=== PATIENT | female | born 1960 | race Caucasian/White ===

== ENCOUNTER → 2016-08-01 | Outpatient (CLI) | payer BC ==
--- NOTE | 2016-08-01 15:48 | DIAGNOSTIC IMAGING REPORT ---
CHEST 2 VIEWS ROUTINE CLINICAL HISTORY: R06.02 Shortness of breath dyspnea COMPARISON STUDY: No previous studies for comparison. FINDINGS: The bones soft tissues and hemidiaphragms are normal. The cardiomediastinal silhouette is normal. The lungs are clear. The pulmonary vasculature is normal. IMPRESSION: Negative chest. Electronically signed by: Manuelito Hough M.D. 08/01/2016 3:47 PM Dictated Date/Time: 08/01/2016 3:47 PM
== END | disposition home or self-care (01) ==
LOC: C.RAD1850 15:37
PROVIDERS: ATTEND Nurse Practitioner Adult Health
DX: R06.02 Shortness of breath (principal)

== ENCOUNTER → 2016-12-04 | Outpatient (CLI) | payer BC ==
--- NOTE | 2016-12-04 09:19 | DIAGNOSTIC IMAGING REPORT ---
LEFT HIP UNILATERAL 2 VIEWS CLINICAL HISTORY: M25.552 Left hip [id number] COMPARISON: None. DISCUSSION: No fractures or dislocations are visualized. A subtle intertrochanteric lucency, is unlikely to represent a fracture given the absence of a traumatic history. There are no erosive or destructive changes. The joint space appears well-preserved for age. IMPRESSION: Unremarkable conventional radiographic evaluation of the left hip for age Electronically signed by: Ilya Poe M.D. 12/04/2016 9:17 AM Dictated Date/Time: 12/04/2016 9:15 AM
== END | disposition home or self-care (01) ==
LOC: C.RAD1850 09:03
PROVIDERS: ATTEND Nurse Practitioner Family
DX: M25.552 Pain in left hip (principal)

== ENCOUNTER 2020-10-17 07:18 | Inpatient (IN) ==
[2020-10-17] MEDS ORDERED: KETOROLAC TROMETHAMINE 15 MG/ML VIAL IV STA (07:51)
--- NOTE | 2020-10-17 08:01 | Emergency Department Note ---
History of Present Illness General Chief complaint: Leg Injury/Pain Stated complaint: LEFT LEG PAIN Time Seen by Provider: 10/17/20 07:38 Source: patient Mode of arrival: ambulatory Limitations: no limitations History of Present Illness Maximum Pain Intensity: 9 This patient is a 60-year-old female who presents to the emergency department for evaluation of left leg pain. She states she has pain for her left foot up to her hip. Her pain started 2 days ago and was initially intermittent. She had been doing some yard work and thinks this may have contributed to the pain. She states that beginning last evening, about 15 hours prior to arrival, her pain became constant. She states that her foot feels numb. She has had difficulty moving the left leg and states she has been unable to get down her stairs due to the pain and weakness. She tried an icy hot patch and Aspercreme last night, but was unable to take any medications because she was unable to go get them. She does have some pain in her left buttock, but no back pain. She reports this is happened in her right leg before, and she was told that it was a pinched nerve. She describes a feeling of "pop rocks" in her leg. Patient denies any urinary symptoms, incontinence, fevers or recent illness. She rates her discomfort a 9/10. Pain feels better when she is laying back flat. It is worse when she tries to move. Home Medications Medication Instructions Recorded Confirmed Type hydroxychloroquine 200 mg tablet 200 mg PO BID 02/09/19 10/17/20 History (Plaquenil) omeprazole 20 mg capsule,delayed 20 mg PO QAM PRN 02/09/19 10/17/20 History release CPAP Supplies 1 ea .ROUTE DAILY #1 ea 08/31/20 09/06/20 Rx montelukast 10 mg tablet 10 mg PO QAM 10/17/20 10/17/20 History (Singulair) multivitamin (Daily-Andrea) 1 tab PO QAM 10/17/20 10/17/20 History naproxen 500 mg tablet (Naprosyn) 500 mg PO BID 10/17/20 10/17/20 History Allergies Allergy/AdvReac Type Severity Reaction Status Date / Time animal dander Allergy Intermediate itchy Unverified 10/17/20 08:32 watery eyes, sneezing grass pollen Allergy Intermediate itchy Unverified 10/17/20 08:32 watery eyes, sneezing methylchloroisothiazolinone Allergy Intermediate itchy Unverified 10/17/20 08:35 watery eyes, sneezing mite-Dermatophagoides Allergy Intermediate itchy Unverified 10/17/20 08:32 farinae, thea watery eyes, sneezing mold Allergy Intermediate itchy Unverified 10/17/20 08:32 watery eyes, sneezing tree and shrub pollen Allergy Intermediate itchy Unverified 10/17/20 08:32 watery eyes, sneezing fluticasone [From Flonase] Allergy itching Verified 10/17/20 08:27 Latex, Natural Rubber AdvReac Unknown Rash Verified 10/17/20 08:27 Thimerosal AdvReac Unknown allergy Uncoded 10/17/20 08:27 tested this came up Past Med/Surg History Medical History (Updated 10/17/20 @ 16:16 by SARA Garcia) SNHL (sensorineural hearing loss) Tinnitus Surgical History Papilloma of breast Benign intraductal papilloma L breast S/P cholecystectomy S/P nasal surgery S/P tonsillectomy and adenoidectomy Family History Mother Breast cancer Sister Breast cancer Grandmother Colon cancer Denies family history of Ovarian cancer Prostate cancer Myocardial infarction Social History Smoking Status: Never smoker Second Hand Exposure: No; Hx Alcohol Use: No Hx Substance Use: No Preferred Language: [place] Visual Impairment: No Limitations Hearing Ability: Normal marital status: Single Current Living Situation: Alone current occupational status: employed 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 Feels Safe at Home: Yes Childhood Exposure to Second-Hand Smoke: Yes Dental Care, Regularly: Yes Physical Activity Frequency: 5-6 Times per Week Seatbelt Use: always Sunscreen Use: Yes Review of Systems A total of 10 systems reviewed and were otherwise negative Physical Exam Vital Signs Vital Signs - 24 hr 10/17/20 07:33 10/17/20 09:18 10/17/20 11:00 Temperature 36.8 C Temperature Source Temporal Artery Scan Pulse Rate 87 Pulse Rate [Apical] 88 70 Respiratory Rate 20 18 18 Blood Pressure 154/76 H Blood Pressure [Left Arm] 137/57 L 147/67 H Blood Pressure Mean 102 Blood Pressure Mean [Left Arm] 83 93 Blood Pressure Position Sitting Pulse Oximetry 96 98 96 Oxygen Delivery Method Room Air Room Air Room Air Sepsis Recent Fever Within 48 Hours No Sepsis New/Unexplained Change in Mental Status No Sepsis Action Taken by Nursing No Action Required 10/17/20 13:00 Temperature Temperature Source Pulse Rate Pulse Rate [Apical] 80 Respiratory Rate 18 Blood Pressure Blood Pressure [Left Arm] 138/90 Blood Pressure Mean Blood Pressure Mean [Left Arm] 106 Blood Pressure Position Pulse Oximetry 98 Oxygen Delivery Method Room Air Sepsis Recent Fever Within 48 Hours Sepsis New/Unexplained Change in Mental Status Sepsis Action Taken by Nursing VITALS: Vitals are noted on the nurse's note and reviewed by myself. GENERAL: This is a 60-year-old female, in no acute distress, well-developed well-nourished. SKIN: The skin was without rashes. EYES: Pupils equal round and reactive to light and accommodation. MOUTH: Mucous membranes moist. Tonsils are not enlarged. Pharynx without erythema or exudate. NECK: Supple without nuchal rigidity. No lymphadenopathy. HEART: Regular rate and rhythm without murmurs gallops or rubs. LUNGS: Clear to auscultation bilaterally without wheezes, rales or rhonchi. ABDOMEN: Positive bowel sounds x 4. Soft, nontender to palpation. MUSCULOSKELETAL: There is no obvious deformity. There is no tenderness to palpation of the left leg. Patient does report some left-sided SI joint tenderness. Full range of motion of bilateral lower extremities. Strength 5/5 in the right lower extremity, 4/5 in the left lower extremity at the hip and ankle. Distal sensation intact. Course Administered Medications Discontinued Medications Dexamethasone Sodium Phosphate (DexamethasonePf 10 Mg/Ml Vial) 10 mg IV NOW ONE Stop: 10/17/20 11:41 Last Admin: 10/17/20 12:19 Dose: 10 mg Documented by: [id number] Hydromorphone HCl (Hydromorphone Inj 1 Mg/Ml Syringe) 1 mg IV NOW STA Stop: 10/17/20 11:00 Last Admin: 10/17/20 11:05 Dose: 1 mg Documented by: [id number] Ketorolac Tromethamine (Ketorolac Tromethamine 15 Mg/Ml Vial) 15 mg IV NOW STA Stop: 10/17/20 07:52 Last Admin: 10/17/20 08:15 Dose: 15 mg Documented by: [id number] Ondansetron HCl (Ondansetron 4 Mg Od Tab) 4 mg PO NOW STA Stop: 10/17/20 16:01 Last Admin: 10/17/20 16:08 Dose: Not Given Documented by: [id number] Ondansetron HCl (Ondansetron 4 Mg Od Tab) Confirm Administered Dose 4 mg .ROUTE .STK-MED ONE Stop: 10/17/20 16:05 Last Admin: 10/17/20 16:05 Dose: 4 mg Documented by: [id number] Medical Decision Making Differential Diagnosis Differential diagnosis includes cauda equina syndrome, cord compression, disc herniation, muscle spasm, lumbar strain, epidural abscess, malignancy, transverse myelitis, urinary tract infection, colitis, diverticulitis, kidney stone, among others. Home Medications Current Medication List: was personally reviewed by me Laboratory Data Attestation: I reviewed the patient's lab results. Result diagrams: 10/17/20 08:00 10/17/20 08:00 Lab Results 10/17/20 10/17/20 10/17/20 Range/Units 08:00 08:00 15:44 WBC 6.56 (4.8-10.8) K/uL RBC 4.70 (4.2-5.4) M/uL Hgb 14.0 (12.0-16.0) g/dL Hct 42.5 (37-47) % MCV 90.4 (80-100) fL MCH 29.8 (25-34) pg MCHC 32.9 (32-36) g/dL RDW Std Deviation 44.2 (36.4-46.3) fL RDW Coeff of Deborah 13.3 (11.5-14.5) % Plt Count 287 (130-400) K/uL MPV 9.7 (7.4-10.4) fL Immature Gran % (Auto) 0.2 % Neut % (Auto) 67.2 % Lymph % (Auto) 22.6 % Gladwin % (Auto) 8.2 % Eos % (Auto) 1.5 % Baso % (Auto) 0.3 % Neut # (Auto) 4.41 (1.4-6.5) K/uL Lymph # (Auto) 1.48 (1.2-3.4) K/uL Gladwin # (Auto) 0.54 (0.11-0.59) K/uL Eos # (Auto) 0.10 (0-0.5) K/uL Baso # (Auto) 0.02 (0-0.2) K/uL Immature Gran # (Auto) 0.01 (0.00-0.02) K/uL Sodium 140 (136-145) mmol/L Potassium 3.9 (3.5-5.1) mmol/L Chloride 108 H (98-107) mmol/L Carbon Dioxide 27 (21-32) mmol/L Anion Gap 6.0 (3-11) BUN 14 (7-18) mg/dl Creatinine 0.90 (0.6-1.2) mg/dl Est Cr Clr Drug Dosing 89.5 ml/min Est GFR ( Amer) 81.1 ml/min Est GFR (Non-Af Amer) 70.0 ml/min BUN/Creatinine Ratio 15.5 (10-20) Glucose 142 H (70-99) mg/dl Calcium 8.9 (8.5-10.1) mg/dl Total Bilirubin 0.6 (0.2-1) mg/dl AST 21 (15-37) U/L ALT 53 (12-78) U/L Alkaline Phosphatase 67 (45-117) U/L Total Protein 7.1 (6.4-8.2) gm/dl Albumin 3.7 (3.4-5.0) gm/dl Globulin 3.4 (2.5-4.0) gm/dl Albumin/Globulin Ratio 1.1 (0.9-2) COVID-19 Eval Order Covid19 at [facility] Imaging Data Attestation: I personally reviewed and interpreted this imaging study as follows: Radiologist's Impression: Lumbar Spine MRI 10/17/20 07:51 MR lumbar spine wo con CLINICAL HISTORY: 60 years-old Female with left leg pain/weakness/numbness. Acute low back pain with radiation into the left lower leg COMPARISON: None. TECHNIQUE: Multiplanar, multi sequence MRI of the lumbar spine was performed without intravenous contrast. FINDINGS: Pipe Racker localizer images demonstrate no gross extraspinal abnormality. Subcutaneous edema of the lower back is likely physiologic. No acute fracture, subluxation, endplate erosion or significant bone marrow edema. Conus medullaris terminates at T12-L1. Signal within the imaged thoracic spinal cord and cauda equina is within normal limits. 1.4 cm L3 vertebral body hemangioma. Type II endplate degenerative changes at L4-L5. T12-L1: Mild facet arthrosis with ligamentum flavum thickening. No central canal or neural foraminal stenosis. L1-L2: Mild facet arthrosis with ligamentum flavum thickening. No central canal or neural foraminal stenosis. L2-L3: And mild to moderate facet arthrosis with ligamentum flavum thickening. Small posterior annular disc bulge flattens the ventral thecal sac. Mild spondylitic spurring. There is mild right neural foraminal stenosis. Mild central canal stenosis. The left neuroforamen is patent. L3-L4: Small posterior annular disc bulge favoring the left lateral recess and left neural foramen with mild spondylitic spurring. Ligamentum flavum thickening with moderate facet arthrosis. AP dimension of the thecal sac measures 7 mm. There is mild to moderate central canal stenosis with at least moderate narrowing of the left lateral recess. There is mild to moderate bilateral neural foraminal narrowing. L4-L5: Mild intervertebral disc space narrowing with spondylitic spurring, posterior annular disc bulge with disc osteophyte complex. Ligamentum flavum thickening with moderate facet arthrosis. AP dimension of the thecal sac measures 6 mm. There is moderate to severe central canal stenosis with severe narrowing of the lateral recesses. Moderate to severe right with moderate left neural foraminal narrowing. L5-S1: Mild spondylitic spurring with circumferential annular disc bulge and posterior annular fissure. Spondylitic spurring with ligamentum flavum thickening and at least moderate facet arthrosis. There is a left lateral recess disc extrusion measuring 0.7 x 1.3 cm extending 9 mm inferior to the superior endplate of S1. This abuts and posteriorly displaces the left S1 nerve root. There is severe narrowing of the left lateral recess. No significant central canal narrowing. Severe right with moderate left neural foraminal stenosis. IMPRESSION: 1. At L5-S1 there is a left lateral recess disc extrusion which abuts and posteriorly displaces the left S1 nerve root resulting in severe left lateral recess narrowing with severe right and moderate left neural foraminal stenosis. 2. Moderate to severe central canal stenosis at L4-L5. 3. Additional discogenic degenerative changes with facet arthrosis as detailed above. ACT 112: Negative or not required by law. The above report was generated using voice recognition software. It may contain grammatical, syntax or spelling errors. Electronically signed by: Jaquan Amor M.D. 10/17/2020 10:36 AM MDM Narrative Continuous library monitor: Order was placed for continuous library monitor. Patient was placed on the library monitor. Patient was noted to be in normal sinus rhythm at an initial rate of 87 bpm. The patient is a 60-year-old female who presents today complaining of back pain, left leg numbness and weakness. An MRI was performed and did show a large disc protrusion at L5-S1 with secondary findings which would certainly contribute to the patient's symptoms. I spoke with the on-call spine surgeon, Dr. Fernandez, who did evaluate the patient in the emergency department. He had recommended IV Decadron and patient has been given this. She also received Toradol and Dilaudid for pain. She did not feel like she would be able to go home given the severity of her symptoms and Dr. Fernandez recommended medical admission with pain management consult. I did speak with the [facility] hospitalist service, who agreed to evaluate the patient for further care. Impression & Plan Acute left lumbar radiculopathy Discharge Plan Visit Data Chief Complaint: Leg Injury/Pain Stated Complaint: LEFT LEG PAIN ED Provider: Emeterio Jimenez ED Midlevel Provider: Cathy Haney Discharge Problem: Acute left lumbar radiculopathy Forms Stand Alone Forms: [facility] Prescriptions Prescriptions: No Action hydroxychloroquine [Plaquenil] 200 mg tablet 200 mg PO BID RF: 0 omeprazole 20 mg capsule,delayed release(DR/EC) 20 mg PO QAM PRN (Reason: Acid Reflux) RF: 0 CPAP Supplies Misc 1 ea .Route DAILY Qty: 1 RF: 0 multivitamin [Daily-Andrea] Tablet 1 tab PO QAM RF: 0 montelukast [Singulair] 10 mg tablet 10 mg PO QAM RF: 0 naproxen [Naprosyn] 500 mg tablet 500 mg PO BID RF: 0 Referrals Referrals: Ingrid Michaels MD [Primary Care Provider] -
[2020-10-17 08:14] LABS: Basophils # (auto) 0.02 K/uL (0-0.2); Basophils % (auto) 0.3 %; Eosinophils % (auto) 1.5 %; Hematocrit (blood only) 42.5 % (37-47); Immature Granulocytes # (auto) 0.01 K/uL (0.00-0.02); Immature Granulocytes % (auto) 0.2 %; Lymphocytes # (auto) 1.48 K/uL (1.2-3.4); Lymphocytes % (auto) 22.6 %; Mean Corpuscular Hemoglobin 29.8 pg (25-34); Mean Corpuscular Hgb Conc 32.9 g/dL (32-36); Mean Corpuscular Volume 90.4 fL (80-100); Mean Platelet Volume 9.7 fL (7.4-10.4); Monocytes # (auto) 0.54 K/uL (0.11-0.59); Monocytes % (auto) 8.2 %; Neutrophils # (auto) 4.41 K/uL (1.4-6.5); Neutrophils % (auto) 67.2 %; Platelet Count 287 K/uL (130-400); RDW Coefficient of Variation 13.3 % (11.5-14.5); RDW Standard Deviation 44.2 fL (36.4-46.3); White Blood Count 6.56 K/uL (4.8-10.8)
[2020-10-17 08:28] LABS: Albumin Level 3.7 gm/dl (3.4-5.0); BUN Creatinine Ratio 15.5 (10-20); Calcium 8.9 mg/dl (8.5-10.1); Creatinine Clr Calc Pharmacy 89.5 ml/min; Est GFR (African American) 81.1 ml/min; Potassium 3.9 mmol/L (3.5-5.1)
[2020-10-17 08:31] LABS: Albumin Globulin Ratio 1.1 (0.9-2); Bilirubin,Total 0.6 mg/dl (0.2-1); Globulin 3.4 gm/dl (2.5-4.0); Total Protein 7.1 gm/dl (6.4-8.2)
--- NOTE | 2020-10-17 10:37 | Magnetic Resonance Report ---
MR lumbar spine wo con CLINICAL HISTORY: 60 years-old Female with left leg pain/weakness/numbness. Acute low back pain with radiation into the left lower leg COMPARISON: None. TECHNIQUE: Multiplanar, multi sequence MRI of the lumbar spine was performed without intravenous cont rast. FINDINGS: Rpg Developer localizer images demonstrate no gross extraspinal abnormality. Subcutaneous edema of the lower back is likely physiologic. No acute fracture, subluxation, endplate erosion or significant bone thomas ow edema. Conus medullaris terminates at T12-L1. Signal within the imaged thoracic spinal cord and ca uda equina is within normal limits. 1.4 cm L3 vertebral body hemangioma. Type II endplate degenerativ e changes at L4-L5. T12-L1: Mild facet arthrosis with ligamentum flavum thickening. No central canal or neural foraminal stenosis. L1-L2: Mild facet arthrosis with ligamentum flavum thickening. No central canal or neural foraminal stenosis. L2-L3: And mild to moderate facet arthrosis with ligamentum flavum thickening. Small posterior annul ar disc bulge flattens the ventral thecal sac. Mild spondylitic spurring. There is mild right neural foraminal stenosis. Mild central canal stenosis. The left neuroforamen is patent. L3-L4: Small posterior annular disc bulge favoring the left lateral recess and left neural foramen w ith mild spondylitic spurring. Ligamentum flavum thickening with moderate facet arthrosis. AP dimensi on of the thecal sac measures 7 mm. There is mild to moderate central canal stenosis with at least mo derate narrowing of the left lateral recess. There is mild to moderate bilateral neural foraminal miladis rowing. L4-L5: Mild intervertebral disc space narrowing with spondylitic spurring, posterior annular disc bu lge with disc osteophyte complex. Ligamentum flavum thickening with moderate facet arthrosis. AP dime nsion of the thecal sac measures 6 mm. There is moderate to severe central canal stenosis with severe narrowing of the lateral recesses. Moderate to severe right with moderate left neural foraminal narr owing. L5-S1: Mild spondylitic spurring with circumferential annular disc bulge and posterior annular fissu re. Spondylitic spurring with ligamentum flavum thickening and at least moderate facet arthrosis. The re is a left lateral recess disc extrusion measuring 0.7 x 1.3 cm extending 9 mm inferior to the supe rior endplate of S1. This abuts and posteriorly displaces the left S1 nerve root. There is severe miladis rowing of the left lateral recess. No significant central canal narrowing. Severe right with moderate left neural foraminal stenosis. IMPRESSION: 1. At L5-S1 there is a left lateral recess disc extrusion which abuts and posteriorly displaces the l eft S1 nerve root resulting in severe left lateral recess narrowing with severe right and moderate le ft neural foraminal stenosis. 2. Moderate to severe central canal stenosis at L4-L5. 3. Additional discogenic degenerative changes with facet arthrosis as detailed above. ACT 112: Negative or not required by law. The above report was generated using voice recognition software. It may contain grammatical, syntax o r spelling errors. Electronically signed by: Jaquan Amor M.D. 10/17/2020 10:36 AM
[2020-10-17] MEDS ORDERED: HYDROmorphone INJ 1 MG/ML SYRINGE IV STA (10:59)
[2020-10-17] MEDS ORDERED: dexAMETHasone**PF** 10 MG/ML VIAL IV ONE (11:40)
[2020-10-17] MEDS ORDERED: ONDANSETRON 4 MG OD TAB PO STA (16:00)
--- NOTE | 2020-10-17 16:01 | History & Physical Report ---
Date of Service October 17, 2020 Assessment & Plan (1) Acute pain: Plan: Acute left sided sacroiliac pain with sciatic involvement - MRI as above - Prednisone 50mg PO daily - Continue hydromorphone 0.5 mg IV for severe pain - Continue Naprosyn - PPI while on Naprosyn and Prednisone - Lidoderm patch - heat therapy - PT/OT - Consider acute pain consult in the morning (2) Sciatic leg pain: Plan: As above- At L5-S1 there is a left lateral recess disc extrusion which abuts and posteriorly displaces the left S1 nerve root resulting in severe left lateral recess narrowing with severe right and moderate left neural foraminal stenosis. Moderate to severe central canal stenosis at L4-L5. Additional discogenic degenerative changes with facet arthrosis as detailed above. Pt/OT (3) Spinal stenosis: Plan: As above (4) Lupus (systemic lupus erythematosus): Plan: Continue Plaquenil 200 PO BID (5) Hypercholesterolemia: Plan: Not on home therapy (6) Acid reflux: Plan: Continue PPI as above (7) Obstructive sleep apnea: Plan: AHI in 2019 12.5- AutoPAP 4-17 - Patient home machine has been recalled [facility]- she has not used for 3 weeks - In house machine will be ordered, creviewed with patient would like her to wear at night especially with addition of sedatives/narcotics History of Present Illness Primary Care Provider: Ingrid Michaels MD 60 YOF with past medical history of: Lupus, HLD, CHINO, DMII, Obesity. Patient comes to the emergency room today via friend's vehicle on crutches. Her chief complaint is left back and leg pain. The pain started on Friday following her working in her yard. She states the pain is sharp and constant and travels from her left hip down the lateral surface of her leg into her ankle. She was treated in the EMD with Dilaudid, Toradol, and Decadron. She doesn't feel that any of this helped, but was sleeping upon entering the room. The patient states that her pain is controllable when she is lying down as this "makes her not care about having the pain, but doesn't go away." The pain is worse when she is standing or sitting and had crutches left over at home so started using these to help her walk. She is on Naprosyn at home and did not feel this provided any relief. She had a MRI of her lumbar spine done in the [facility], that showed L5-S1 left lateral recess disc extrusion that abuts and displaces the left S1 nerve root posteriorly and severe right and moderate left neural foraminal stenosis and moderate to severe central canal stenosis at l4-l5 with other degenerative changes. [facility] had ortho-spine come evaluate the patient at the bedside reportedly not surgical in nature. Patient unable to get up and move around well enough for discharge secondary to pain. Patient will be observed in house for continuing oral steroids, pain control, physical therapy evaluation. Allergies Allergy/AdvReac Type Severity Reaction Status Date / Time animal dander Allergy Intermediate itchy Unverified 10/17/20 08:32 watery eyes, sneezing grass pollen Allergy Intermediate itchy Unverified 10/17/20 08:32 watery eyes, sneezing methylchloroisothiazolinone Allergy Intermediate itchy Unverified 10/17/20 08:35 watery eyes, sneezing mite-Dermatophagoides Allergy Intermediate itchy Unverified 10/17/20 08:32 farinae, thea watery eyes, sneezing mold Allergy Intermediate itchy Unverified 10/17/20 08:32 watery eyes, sneezing tree and shrub pollen Allergy Intermediate itchy Unverified 10/17/20 08:32 watery eyes, sneezing fluticasone [From Flonase] Allergy itching Verified 10/17/20 08:27 Latex, Natural Rubber AdvReac Unknown Rash Verified 10/17/20 08:27 Thimerosal AdvReac Unknown allergy Uncoded 10/17/20 08:27 tested this came up Home Medications Medication Instructions Recorded Confirmed Type hydroxychloroquine 200 mg tablet 200 mg PO BID 02/09/19 10/17/20 History (Plaquenil) omeprazole 20 mg capsule,delayed 20 mg PO QAM PRN 02/09/19 10/17/20 History release CPAP Supplies 1 ea .ROUTE DAILY #1 ea 08/31/20 09/06/20 Rx montelukast 10 mg tablet 10 mg PO QAM 10/17/20 10/17/20 History (Singulair) multivitamin (Daily-Andrea) 1 tab PO QAM 10/17/20 10/17/20 History naproxen 500 mg tablet (Naprosyn) 500 mg PO BID 10/17/20 10/17/20 History Past Med/Surg History Medical History SNHL (sensorineural hearing loss) Tinnitus Surgical History Papilloma of breast Benign intraductal papilloma L breast S/P cholecystectomy S/P nasal surgery S/P tonsillectomy and adenoidectomy Family History Mother Breast cancer Sister Breast cancer Grandmother Colon cancer Denies family history of Ovarian cancer Prostate cancer Myocardial infarction Social History Smoking Status: Never smoker Second Hand Exposure: No; Do You Dip or Chew Tobacco: No; Tobacco Cessation Education Requested by Patient: No Hx Alcohol Use: No Hx Substance Use: No Preferred Language: Indian Visual Impairment: No Limitations Hearing Ability: Normal Brancher Required: No Beliefs That Will Affect Care: None marital status: Single Current Living Situation: Alone current occupational status: employed 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 Other Information That Helps Us Care for You: No Feels Safe at Home: Yes Safety Concerns: Feels Safe At This Time Childhood Exposure to Second-Hand Smoke: Yes Dental Care, Regularly: Yes Physical Activity Frequency: 5-6 Times per Week Seatbelt Use: always Sunscreen Use: Yes Assistive Devices: Crutches and Glasses Review of Systems Review of Systems: REVIEW OF SYSTEMS: Constitutional: No fever, sweats or chills Eyes: No diplopia, no worsening or blurred vision ENT: normal hearing, no trouble swallowing Respiratory: No cough, sputum, dyspnea at rest or on exertion Cardiovascular: No chest pain, tightness or palpitations Abdomen: No pain, nausea, vomiting, diarrhea or constipation Musculoskeletal: (+) per HPI, No calf pain or swelling, Neurologic: No weakness, numbness/tingling, or balance problems Psychiatric: No anxiety or depression Skin: No rash or itch Physical Exam Physical Exam: PHYSICAL EXAM: General: awaken when entering the room, alert, no apparent distress Head: Normocephalic, atraumatic ENT: PERRL, EOMI, no pharyngeal exudate, mucous membranes moist Neuro: AAO x 3, speech clear and appropriate, strength intact bilaterally 5/5, sensation intact and equal all extremities and dermatomes, Chest: equal rise and fall of the chest, no accessory muscle use, no heaves or thrills, Clear to auscultation, on room air, Cardiac: Regular rate and rhythm, telemetry reviewed-NSR, skin warm dry, cap refill <3 seconds, peripheral pulses +2 no JVD, no murmur, no edema GI: NABS x 4 quadrants, soft, nontender to palpation, no rebound, guarding or tenderness : Spontaneously voiding, no pain, no CVA tenderness, Extremities/MSK: Spine normal alignment no step-offs or tenderness with palpation. Pain with palpation of left SI joint and left posterior trochar, muscles are soft and not tensed, patient is able to flex quads. no errythema or Normal inspection, no peripheral edema or erythema, calfs nontender to palpation Psych: flat mood and affect Skin: no rash or erythema Results & Data Results & Data ([facility]) Vital Signs (Past 12 Hours) Vital Signs Temp Pulse Pulse Resp BP BP Pulse Ox 10/17/20 13:00 80 18 138/90 98 10/17/20 11:00 70 18 147/67 H 96 10/17/20 09:18 88 18 137/57 L 98 10/17/20 07:33 36.8 C 87 20 154/76 H 96 Laboratory Results Abnormal Labs 10/17/20 08:00 Chloride 108 H Glucose 142 H Diagnostic Findings Lumbar Spine MRI 10/17/20 07:51 MR lumbar spine wo con CLINICAL HISTORY: 60 years-old Female with left leg pain/weakness/numbness. Acute low back pain with radiation into the left lower leg COMPARISON: None. TECHNIQUE: Multiplanar, multi sequence MRI of the lumbar spine was performed without intravenous contrast. FINDINGS: Catheter Builder localizer images demonstrate no gross extraspinal abnormality. Subcutaneous edema of the lower back is likely physiologic. No acute fracture, subluxation, endplate erosion or significant bone marrow edema. Conus medullaris terminates at T12-L1. Signal within the imaged thoracic spinal cord and cauda equina is within normal limits. 1.4 cm L3 vertebral body hemangioma. Type II endplate degenerative changes at L4-L5. T12-L1: Mild facet arthrosis with ligamentum flavum thickening. No central canal or neural foraminal stenosis. L1-L2: Mild facet arthrosis with ligamentum flavum thickening. No central canal or neural foraminal stenosis. L2-L3: And mild to moderate facet arthrosis with ligamentum flavum thickening. Small posterior annular disc bulge flattens the ventral thecal sac. Mild spondylitic spurring. There is mild right neural foraminal stenosis. Mild central canal stenosis. The left neuroforamen is patent. L3-L4: Small posterior annular disc bulge favoring the left lateral recess and left neural foramen with mild spondylitic spurring. Ligamentum flavum thickening with moderate facet arthrosis. AP dimension of the thecal sac measures 7 mm. There is mild to moderate central canal stenosis with at least moderate narrowing of the left lateral recess. There is mild to moderate bilateral neural foraminal narrowing. L4-L5: Mild intervertebral disc space narrowing with spondylitic spurring, posterior annular disc bulge with disc osteophyte complex. Ligamentum flavum thickening with moderate facet arthrosis. AP dimension of the thecal sac measures 6 mm. There is moderate to severe central canal stenosis with severe narrowing of the lateral recesses. Moderate to severe right with moderate left neural foraminal narrowing. L5-S1: Mild spondylitic spurring with circumferential annular disc bulge and posterior annular fissure. Spondylitic spurring with ligamentum flavum thickening and at least moderate facet arthrosis. There is a left lateral recess disc extrusion measuring 0.7 x 1.3 cm extending 9 mm inferior to the superior endplate of S1. This abuts and posteriorly displaces the left S1 nerve root. There is severe narrowing of the left lateral recess. No significant central canal narrowing. Severe right with moderate left neural foraminal stenosis. IMPRESSION: 1. At L5-S1 there is a left lateral recess disc extrusion which abuts and posteriorly displaces the left S1 nerve root resulting in severe left lateral recess narrowing with severe right and moderate left neural foraminal stenosis. 2. Moderate to severe central canal stenosis at L4-L5. 3. Additional discogenic degenerative changes with facet arthrosis as detailed above. ACT 112: Negative or not required by law. The above report was generated using voice recognition software. It may contain grammatical, syntax or spelling errors. Electronically signed by: Jaquan Amor M.D. 10/17/2020 10:36 AM Medications Administered Home Medications hydroxychloroquine 200 mg tablet (Plaquenil) 200 mg PO BID 02/09/19 [History Confirmed 10/17/20] omeprazole 20 mg capsule,delayed release 20 mg PO QAM PRN 02/09/19 [History Confirmed 10/17/20] CPAP Supplies 1 ea .ROUTE DAILY #1 ea 08/31/20 [Rx Confirmed 09/06/20] montelukast 10 mg tablet (Singulair) 10 mg PO QAM 10/17/20 [History Confirmed 10/17/20] multivitamin (Daily-Andrea) 1 tab PO QAM 10/17/20 [History Confirmed 10/17/20] naproxen 500 mg tablet (Naprosyn) 500 mg PO BID 10/17/20 [History Confirmed 10/17/20] ECG Additional Comments: Pending on admission Code Status & VTE Plan Code Status CODE: FULL VTE: SCD's, Lovenox 40mg sq BID VTE Prophylaxis Plan VTE Prophylaxis will be ordered: Yes Supervising Physician Co-Signing Physician Notes I supervised Colby Galvin NP on this admission. I interviewed and examined the patient independently of him. The plan is as written in the CR[facility] SPECIALIST's note except for any following changes/exceptions: None 60yo F w/ hx lupus who presents intractable back pain. Pain was not amenable to ED treatments. She was seen by Dr. Fernandez who recommended steroids, Pain Management consult for possible injection if steroids and PT don't work, and outpatient follow-up. Will start with conservative measure and go from there. Monitor neurologic status. PG Care Time/CCT Total # of Minutes Spent Total Time Spent with Patient: Total time spent is greater than 50% in coordination of care (as documented) at patient's floor/unit and/or counseling patient: Coding Level of Care Code INT OBSERVATION CARE 70M LVL 3 Diagnoses Acute pain R52 Sciatic leg pain M54.30 Spinal stenosis M48.00 Lupus (systemic lupus erythematosus) M32.9 Hypercholesterolemia E78.00 Acid reflux K21.9 Obstructive sleep apnea G47.33
[2020-10-17] MEDS ORDERED: ONDANSETRON 4 MG OD TAB ONE (16:04)
[2020-10-17] MEDS ORDERED: ACETAMINOPHEN 325 MG TAB ONE (17:52)
[2020-10-17] MEDS: HYDROmorphone INJ 0.5 MG/0.5 ML SYR IV PRN ×2 (18:28→22:29)
--- NOTE | 2020-10-17 20:19 | Orthopedic Consultation ---
Date of Consultation October 17, 2020 History of Present Illness Reason for Consultation: Please see HPI Requesting Physician: Please see HPI History of Present Illness Chief Complaint: low back pain, left leg symptoms Patient is seen as consult from Cathy Haney PA-C, [facility] ED. Patient is seen in the ED with plans for admission. Thank you for the referral! Patient is here for initial evaluation of above. The pain has been present for 2 days and started after a period of gardening. The pain is focal to the left buttock with radiation to the left foot and sole of feet. The pain is worse with sitting and standing and improved with lying. There is associated numbness and tingling to the sole of left foot. There is subjective weakness affecting the entire leg with significant inhibitation with pain, mainly affecting dorsiflexion and plantarflexion of the left foot. Prior treatments have included IV steroids received in ER, but not PT, NSAIDs or injections. Patient denies new bowel incontinence, bladder retention or saddle anesthesia. Please refer to Ortho Intake section below for further details on history. Physical Exam: Appearance: Well kept, normally developed Psych: Alert, normal mood and affect Eyes: Anicteric Cardiovascular: No lower extremity edema, extremities warm Respiratory: Breathing unlabored Skin: no rashes Musculoskeletal: 5/5 motor strength right L2-S1 4/5 left L2 (pain inhibited) 4/5 left L3 (pain inhibited) 4/5 left L4 (pain inhibited) 4-/5 left L5 (pain inhibited) 4-/5 left L5 (pain inhibited) Straight leg raise positive Neurologic: Sensation 2/2 to light touch bilateral L2-S1 except left S1 1/2. Reflexes are 2+ patella and ankle bilaterally. Babinski neg. No clonus. Global sagittal and coronal balance are within normal limits. Skin on the lower back is healthy with no rashes, lesions or surgical scars. No excessive kyphosis or scoliosis. Lumbar spine range of motion is limited by pain and stiffness. Bilateral lower extremity range of motion is within normal limits with no increased pain. No obvious hip, knee, or ankle pathology bilaterally Bilateral lower extremities are well perfused with no signs of DVT. Spine Imaging: AP and lateral, oblique lumbar (supine) spine 10/17/20 x-rays independently reviewed/interpreted. Findings: no areas of severe DDD no evidence of instability or fracture reported as " FINDINGS: There is no fracture. No subluxation. Mild disc space narrowing at L4-L5 with small endplate osteophytes. Mild facet degenerative changes at L4-L5 and L5-S1. The sacrum is intact. Prior cholecystectomy. IMPRESSION: No fracture or subluxation within the lumbar spine. Mild degenerative changes within the lower lumbar spine as described above. " MRI lumbar spine 10/17/20 independently reviewed/interpreted. Findings: L5-S1 left lateral disc herniation with inferior migration, severe lateral recess stenosis, impingement of the left traversing nerve root, mild bilateral foraminal stenosis L4-5 moderate-severe central stenosis, moderate bilateral foraminal stenosis, with broad-based disc bulge, bilateral facet and ligamentum flavum hypertrophy reported as " FINDINGS: Orthotic Technician localizer images demonstrate no gross extraspinal abnormality. Subcutaneous edema of the lower back is likely physiologic. No acute fracture, s ubluxation, endplate erosion or significant bone marrow edema. Conus medullaris terminates at T12-L1. Signal within the imaged thoracic spinal cord and cauda equina is within normal limits. 1.4 cm L3 vertebral body hemangioma. Type II endplate degenerative changes at L4-L5. T12-L1: Mild facet arthrosis with ligamentum flavum thickening. No central canal or neural foraminal stenosis. L1-L2: Mild facet arthrosis with ligamentum flavum thickening. No central canal or neural foraminal stenosis. L2-L3: And mild to moderate facet arthrosis with ligamentum flavum thickening. Small posterior annular disc bulge flattens the ventral thecal sac. Mild spondylitic spurring. There is mild right neural foraminal stenosis. Mild central canal stenosis. The left neuroforamen is patent. L3-L4: Small posterior annular disc bulge favoring the left lateral recess and left neural foramen with mild spondylitic spurring. Ligamentum flavum thickening with moderate facet arthrosis. AP dimension of the thecal sac measures 7 mm. There is mild to moderate central canal stenosis with at least moderate narrowing of the left lateral recess. There is mild to moderate bilateral neural foraminal narrowing. L4-L5: Mild intervertebral disc space narrowing with spondylitic spurring, posterior annular disc bulge with disc osteophyte complex. Ligamentum flavum thickening with moderate facet arthrosis. AP dimension of the thecal sac measures 6 mm. There is moderate to severe central canal stenosis with severe narrowing of the lateral recesses. Moderate to severe right with moderate left neural foraminal narrowing. L5-S1: Mild spondylitic spurring with circumferential annular disc bulge and posterior annular fissure. Spondylitic spurring with ligamentum flavum thickening and at least moderate facet arthrosis. There is a left lateral recess disc extrusion measuring 0.7 x 1.3 cm extending 9 mm inferior to the superior endplate of S1. This abuts and posteriorly displaces the left S1 nerve root. There is severe narrowing of the left lateral recess. No significant central canal narrowing. Severe right with moderate left neural foraminal stenosis. IMPRESSION: 1. At L5-S1 there is a left lateral recess disc extrusion which abuts and posteriorly displaces the left S1 nerve root resulting in severe left lateral recess narrowing with severe right and moderate left neural foraminal stenosis. 2. Moderate to severe central canal stenosis at L4-L5. 3. Additional discogenic degenerative changes with facet arthrosis as detailed above. " Assessment/Plan: Patient with below presentation and diagnosis. Discussed diagnosis, natural history, treatment recommendations based on best available evidence Presentation in keeping with acute left L5-S1 disc herniation with left S1 radiculopathy, non-op management not exhausted Differential diagnosis include: - hip pathology - minimal pain with hip ROM Recommend - admission under hospitalist service for mobility and pain control - medical management with oral steroids followed by NSAIDs - PT while in hospital with continuation of PT as outpatient - consult pain management for consideration for possible inpatient injection - f/u 2 weeks in my office; contact information provided to patient Thank you for the opportunity to participate in this patient's care. Please give me a call if there are any concerns or questions. James Fernandez MD Spine Surgeon [facility] Orthopedics [phone] Allergies Allergy/AdvReac Type Severity Reaction Status Date / Time animal dander Allergy Intermediate itchy Unverified 10/17/20 08:32 watery eyes, sneezing grass pollen Allergy Intermediate itchy Unverified 10/17/20 08:32 watery eyes, sneezing methylchloroisothiazolinone Allergy Intermediate itchy Unverified 10/17/20 08:35 watery eyes, sneezing mite-Dermatophagoides Allergy Intermediate itchy Unverified 10/17/20 08:32 farinae, thea watery eyes, sneezing mold Allergy Intermediate itchy Unverified 10/17/20 08:32 watery eyes, sneezing tree and shrub pollen Allergy Intermediate itchy Unverified 10/17/20 08:32 watery eyes, sneezing fluticasone [From Flonase] Allergy itching Verified 10/17/20 08:27 Latex, Natural Rubber AdvReac Unknown Rash Verified 10/17/20 08:27 Thimerosal AdvReac Unknown allergy Uncoded 10/17/20 08:27 tested this came up Home Medications Medication Instructions Recorded Confirmed Type hydroxychloroquine 200 mg tablet 200 mg PO BID 02/09/19 10/17/20 History (Plaquenil) omeprazole 20 mg capsule,delayed 20 mg PO QAM PRN 02/09/19 10/17/20 History release CPAP Supplies 1 ea .ROUTE DAILY #1 ea 08/31/20 09/06/20 Rx montelukast 10 mg tablet 10 mg PO QAM 10/17/20 10/17/20 History (Singulair) multivitamin (Daily-Andrea) 1 tab PO QAM 10/17/20 10/17/20 History naproxen 500 mg tablet (Naprosyn) 500 mg PO BID 10/17/20 10/17/20 History Patient History Medical History SNHL (sensorineural hearing loss) Tinnitus Surgical History Papilloma of breast Benign intraductal papilloma L breast S/P cholecystectomy S/P nasal surgery S/P tonsillectomy and adenoidectomy Family History Mother Breast cancer Sister Breast cancer Grandmother Colon cancer Denies family history of Ovarian cancer Prostate cancer Myocardial infarction Social History Smoking Status: Never smoker Second Hand Exposure: No; Do You Dip or Chew Tobacco: No; Tobacco Cessation Education Requested by Patient: No Hx Alcohol Use: No Hx Substance Use: No Preferred Language: Montenegrin Visual Impairment: No Limitations Hearing Ability: Normal Security Developer Required: No Beliefs That Will Affect Care: None marital status: Single Current Living Situation: Alone current occupational status: employed 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 Physical Exam Physical Exam: Please see HPI Results & Data ([facility]) Vital Signs (Past 12 Hours) Vital Signs Temp Pulse Resp BP Pulse Ox 10/17/20 17:51 36.8 C 73 22 147/67 H 97 10/17/20 13:00 80 18 138/90 98 10/17/20 11:00 70 18 147/67 H 96 10/17/20 09:18 88 18 137/57 L 98 Laboratory Results . Diagnostic Findings See History of Present Illness (HPI) section above. PG Care Time/CCT Total # of Minutes Spent Total Time Spent with Patient: Total time spent is greater than 50% in coordination of care (as documented) at patient's floor/unit and/or counseling patient: Coding Level of Care Code 87699 Inpt Consult Level 4
[2020-10-17] MEDS ORDERED: ACETAMINOPHEN 325 MG TAB PO PRN (20:52)
[2020-10-17] MEDS ORDERED: PROMETHAZINE HCL 12.5 MG in SODIUM CHLORIDE 0.9% 50 ML IV PRN (21:21)
[2020-10-17] MEDS ORDERED: PANTOprazole 40 MG TAB PO PRN (21:33)
[2020-10-17] MEDS ORDERED: ENOXAPARIN INJ 40 MG/0.4 ML SYR SQ SCH (22:00)
[2020-10-17] MEDS: HYDROXYCHLOROQUINE SULFATE 200 MG TAB PO SCH (22:30)
[2020-10-17] MEDS: MONTELUKAST SODIUM 10 MG TABLET PO SCH (22:30)
[2020-10-17] MEDS: LIDOCAINE 5% 1 PATCH TD SCH (22:30)
[2020-10-17] MEDS: NAPROXEN 250 MG TAB PO SCH (22:30)
[2020-10-17 22:36] LABS: Appearance Urine Clear (Clear); Bacteria Urine Automated Negative (Negative); Bilirubin Urine Negative (Negative); Blood Urine 1+ (Negative); Color Urine Yellow; Epithelial Cell Urine Auto >30 /lpf (0-5); Glucose Urine UA Negative (Negative); Ketones Urine 2+ (Negative); Leukocyte Esterase Urine Negative (Negative); Nitrite Urine Negative (Negative); Protein Urine Negative (Negative); Specific Gravity Urine 1.019 (1.000-1.030); Urobilinogen Urine Negative (Negative)
[2020-10-18] MEDS: HYDROmorphone INJ 0.5 MG/0.5 ML SYR IV PRN ×2 (04:32→16:00)
[2020-10-18 07:01] LABS: Basophils # (auto) 0.01 K/uL (0-0.2); Basophils % (auto) 0.1 %; Eosinophils # (auto) 0.01 K/uL (0-0.5); Eosinophils % (auto) 0.1 %; Hematocrit (blood only) 43.8 % (37-47); Hemoglobin 14.1 g/dL (12.0-16.0); Immature Granulocytes # (auto) 0.02 K/uL (0.00-0.02); Immature Granulocytes % (auto) 0.2 %; Lymphocytes # (auto) 1.57 K/uL (1.2-3.4); Lymphocytes % (auto) 15.4 %; Mean Corpuscular Hemoglobin 29.4 pg (25-34); Mean Corpuscular Hgb Conc 32.2 g/dL (32-36); Mean Corpuscular Volume 91.3 fL (80-100); Mean Platelet Volume 9.6 fL (7.4-10.4); Monocytes # (auto) 0.95 K/uL (0.11-0.59); Monocytes % (auto) 9.3 %; Neutrophils # (auto) 7.65 K/uL (1.4-6.5); Neutrophils % (auto) 74.9 %; Platelet Count 303 K/uL (130-400); RDW Coefficient of Variation 13.3 % (11.5-14.5); RDW Standard Deviation 43.8 fL (36.4-46.3); White Blood Count 10.21 K/uL (4.8-10.8)
[2020-10-18 07:57] LABS: BUN Creatinine Ratio 22.9 (10-20); Calcium 9.2 mg/dl (8.5-10.1); Est GFR (African American) 89.5 ml/min; Est GFR (Non-African American) 77.2 ml/min; Magnesium 2.4 mg/dl (1.8-2.4); Potassium 4.7 mmol/L (3.5-5.1)
[2020-10-18] MEDS: NAPROXEN 250 MG TAB PO SCH (09:18)
[2020-10-18] MEDS: HYDROXYCHLOROQUINE SULFATE 200 MG TAB PO SCH ×2 (09:18→20:30)
[2020-10-18] MEDS: predniSONE 50 MG TAB PO SCH (09:19)
[2020-10-18] MEDS ORDERED: Nursing to Pharmacy Communication SCH (09:45)
[2020-10-18] MEDS: MONTELUKAST SODIUM 10 MG TABLET PO SCH ×2 (09:56→20:30)
--- NOTE | 2020-10-18 18:21 | Hospitalist Progress Note ---
Date of Service October 18, 2020 Assessment & Plan (1) Lumbar radiculopathy, acute: Plan: Presents with acute left L5-S1 disc herniation with left S1 radiculopathy, severe pain from left posterior thigh to left foot, sensory deficit left leg and mild weakness in S1 distribution. MRI Lumbar spine with L5-S1 there is a left lateral recess disc extrusion which abuts and posteriorly displaces the left S1 nerve root resulting in severe left lateral recess narrowing with severe right and moderate left neural foraminal stenosis. Moderate to severe central canal stenosis at L4-L5. Additional discogenic degenerative changes with facet arthrosis Pain modestly improved since receiving IV Decadron 10mg in ER and prednisone 50mg this AM. IV dilaudid helps for a short period but is also making her chest and jaw feel tight when she receives it. Appreciate Ortho SPine consultation-needs medical, conservative therapy first to include steroids, PT, Pain Management consult -start gabapentin 200mg po bid and titrate upwards as tolerated to effect -continue prednisone 50mg po daily -dc Naprosyn in case of need for JESSIKA and also increased risk for PUD with steroids and NSAIDs -continue lidocaine patch, heat -await Pain Management consult to see about JESSIKA inaptietn vs outpt -PT/OT consults -add hydrocodone prn pain and avoid dilaudid given adverse side effect although I do not believe this is an allergic reaction (2) Spinal stenosis: Plan: As above (3) Lupus (systemic lupus erythematosus): Plan: Continue Plaquenil 200 PO BID Follows with Rheum at [place] (4) Hypercholesterolemia: Plan: Not on home therapy (5) Acid reflux: Plan: Continue PPI (6) Obstructive sleep apnea: Plan: AHI in 2019 12.5- AutoPAP 4-17 - Patient home machine has been recalled [employer]- she has not used for 3 weeks - In house machine will be ordered, reviewed with patient would like her to wear at night especially with addition of sedatives/narcotics (7) DVT prophylaxis: Plan: dc Lovenox in case of JESSIKA, add SCDs Dispo-continued stay Admission and Anticipated Discharge Date Admission Date: October 17, 2020 Subjective Pt still having fairly severe pain from back of left thigh through to her foot. Overall is improved from yesterday but persists. Also with weakness in left great toe and ankle and decreased sensation left leg. Lying flat is the best position. Sitting up even to 30 degrees causes severe pain. Last BM yesterday. Denies CP or SOB but did feel tightness across her chest and into her neck each time after receiving IV dilaudid today for a few minutes each time. No trouble with urinating. Review of Systems Review of Systems: All systems reviewed & are unremarkable except as noted in HPI & below Physical Exam Constitutional: WD/WN, vitals as above + obese Eyes: PERRL, conjunctivae normal, anicteric sclerae ENMT: external ear and nose normal, oropharynx normal Neck: trachea midline, no thyromegaly Respiratory: normal respiratory effort, lungs clear to auscultation Cardiovascular: RRR, no murmur, no edema Chest (Breasts): Chest: normal inspection of chest Gastrointestinal (Abdomen): normal bowel sounds, soft, nontender, no hepatosplenomegaly Musculoskeletal: Extremities: extremities normal to inspection; no cyanosis and no clubbing Skin: no rashes, warm and dry Neurologic: + focal motor deficit (4/5 strength left ankle dorsiflexion,left great toe dorsiflexion) and awake; not confused Motor/Sensory: + sensory deficit (decreased to light touch left leg) Psychiatric: A+Ox3, euthymic affect Lymphatic: no lymphedema Results & Data Results & Data ([facility]) Vital Signs (Past 12 Hours) Vital Signs Temp Pulse Resp BP Pulse Ox 10/18/20 14:40 36.9 C 81 18 139/72 92 10/18/20 07:06 36.5 C 62 16 133/75 96 Laboratory Results 10/18/20 10/18/20 10/17/20 Range/Units 06:37 06:37 22:25 WBC 10.21 (4.8-10.8) K/uL RBC 4.80 (4.2-5.4) M/uL Hgb 14.1 (12.0-16.0) g/dL Hct 43.8 (37-47) % MCV 91.3 (80-100) fL MCH 29.4 (25-34) pg MCHC 32.2 (32-36) g/dL RDW Std Deviation 43.8 (36.4-46.3) fL RDW Coeff of Deborah 13.3 (11.5-14.5) % Plt Count 303 (130-400) K/uL MPV 9.6 (7.4-10.4) fL Immature Gran % (Auto) 0.2 % Neut % (Auto) 74.9 % Lymph % (Auto) 15.4 % [place] % (Auto) 9.3 % Eos % (Auto) 0.1 % Baso % (Auto) 0.1 % Neut # (Auto) 7.65 H (1.4-6.5) K/uL Lymph # (Auto) 1.57 (1.2-3.4) K/uL [place] # (Auto) 0.95 H (0.11-0.59) K/uL Eos # (Auto) 0.01 (0-0.5) K/uL Baso # (Auto) 0.01 (0-0.2) K/uL Immature Gran # (Auto) 0.02 (0.00-0.02) K/uL Sodium 140 (136-145) mmol/L Potassium 4.7 D (3.5-5.1) mmol/L Chloride 106 (98-107) mmol/L Carbon Dioxide 30 (21-32) mmol/L Anion Gap 3.0 (3-11) BUN 19 H (7-18) mg/dl Creatinine 0.83 (0.6-1.2) mg/dl Est Cr Clr Drug Dosing 97.0 ml/min Est GFR ( Amer) 89.5 ml/min Est GFR (Non-Af Amer) 77.2 ml/min BUN/Creatinine Ratio 22.9 H (10-20) Glucose 125 H (70-99) mg/dl Calcium 9.2 (8.5-10.1) mg/dl Magnesium 2.4 (1.8-2.4) mg/dl Urine Color Yellow Urine Appearance Clear (Clear) Urine pH 6.0 (4.5-7.5) Ur Specific [place] 1.019 (1.000-1.030) Urine Protein Negative (Negative) Urine Glucose (UA) Negative (Negative) Urine Ketones 2+ H (Negative) Urine Blood 1+ H (Negative) Urine Nitrite Negative (Negative) Urine Bilirubin Negative (Negative) Urine Urobilinogen Negative (Negative) Ur Leukocyte Esterase Negative (Negative) Urine WBC (Auto) 1-5 (0-5) /hpf Urine RBC (Auto) 10-30 H (0-4) /hpf U Hyaline Cast (Auto) 5-10 H (0-5) /lpf U Epithel Cells (Auto) >30 H (0-5) /lpf Urine Bacteria (Auto) Negative (Negative) PG Care Time/CCT Total # of Minutes Spent Total Time Spent with Patient: Total time spent is greater than 50% in coordination of care (as documented) at patient's floor/unit and/or counseling patient: Coding Level of Care Code 41315 Subseq Hosp Care Lvl 2 Diagnoses Spinal stenosis M48.00 Lupus (systemic lupus erythematosus) M32.9 Hypercholesterolemia E78.00 Acid reflux K21.9 Obstructive sleep apnea G47.33 Lumbar radiculopathy, acute M54.16 DVT prophylaxis Z29.9
[2020-10-18] MEDS: GABAPENTIN 100 MG CAP PO SCH (20:29)
[2020-10-18] MEDS: LIDOCAINE 5% 1 PATCH TD SCH (20:30)
[2020-10-19] MEDS: HYDROCODONE/ACETAMOPHEN 5/325MG TAB PO PRN ×2 (04:30→18:32)
[2020-10-19] MEDS: HYDROmorphone INJ 0.5 MG/0.5 ML SYR IV PRN (05:36)
[2020-10-19] MEDS: GABAPENTIN 100 MG CAP PO SCH (08:11)
[2020-10-19] MEDS: predniSONE 50 MG TAB PO SCH (08:11)
[2020-10-19] MEDS: HYDROXYCHLOROQUINE SULFATE 200 MG TAB PO SCH ×2 (08:11→20:55)
--- NOTE | 2020-10-19 09:10 | Pain Management Consultation ---
Date of Consultation October 19, 2020 Assessment & Plan (1) Lumbar radiculopathy, acute: (2) Lumbar disc herniation: 1. We discussed her MRI results at length and her presenting symptoms as well as various treatment options. Due to her intractable pain we did discuss pursuing a left L5-S1 +/- S1 transforaminal JESSIKA. Side effects versus benefits were discussed at length with the patient. She verbalized understanding. All of her questions were answered. She does elect to proceed with the procedure. The procedure will be completed today by Dr. Bartholomew in the OR setting. Consent was obtained and signed by the patient and witnessed by the registered nurse. Dr. Bartholomew will confirm at time of procedure. Expectations of JESSIKA were discussed at length with the patient. 2. Recommend she continue with prednisone taper, gabapentin, [place] and as needed hydromorphone for breakthrough pain 3. Further recommendations pending response to above Thank you for allowing us to participate in the care of Mrs. Espinosa. History of Present Illness Reason for Consultation: Intractable left lower extremity radicular pain Requesting Physician: Malorie Kapadia MD Attending Physician: Malorie Kapadia MD History of Present Illness Mrs. Espinosa is a 60-year-old morbidly obese white female who was admitted due to intractable left lower extremity radicular pain. Patient reported onset of recurrent complaints acutely 4 days ago after performing some yard work but denying any unusual activities or injuries. Patient indicates that her pain is 100% radicular traveling in an L5 versus S1 distribution to the heel. Patient reports that the pain is sharp, aching and constant in characteristic traveling predominantly in the posterior aspect of the left leg to the ankle and occasionally the lateral leg. Patient reports some generalized weakness of the left lower extremity which has improved during this admission. She was out of bed last evening with a walker to the bathroom with minimal exacerbation of symptoms although did have an acute increase in pain throughout last night which was treated successfully with hydromorphone. She reported minimal relief from a dose of [place]. She reports some numbness/tingling sensation in the posterior leg as well. She denies any right-sided symptoms currently but has experienced right lumbar radiculopathy in the past. She denies bowel or bladder incontinence or saddle anesthesias. Patient has no further constitutional complaints. Plan of care discussed with Dr. Bartholomew. Pain Assessment Full Body Front + Back: 1. Left posterior leg from gluteal fold to ankle Pain scale - at its best (0-10): 2 Pain scale - at its worst (0-10): 10 Allergies Allergy/AdvReac Type Severity Reaction Status Date / Time animal dander Allergy Intermediate itchy Unverified 10/17/20 08:32 watery eyes, sneezing grass pollen Allergy Intermediate itchy Unverified 10/17/20 08:32 watery eyes, sneezing methylchloroisothiazolinone Allergy Intermediate itchy Unverified 10/17/20 08:35 watery eyes, sneezing mite-Dermatophagoides Allergy Intermediate itchy Unverified 10/17/20 08:32 farinae, thea watery eyes, sneezing mold Allergy Intermediate itchy Unverified 10/17/20 08:32 watery eyes, sneezing tree and shrub pollen Allergy Intermediate itchy Unverified 10/17/20 08:32 watery eyes, sneezing Latex, Natural Rubber Allergy Unknown Rash Verified 10/17/20 21:31 thimerosal Allergy Unknown allergy Verified 10/17/20 21:31 tested this came up barley Allergy Verified 10/18/20 12:16 celery Allergy Verified 10/18/20 12:16 fluticasone [From Flonase] Allergy itching Verified 10/17/20 08:27 green pepper Allergy Verified 10/18/20 12:16 peanut Allergy Verified 10/18/20 12:16 peanut oil Allergy Verified 10/18/20 12:16 pork derived (porcine) Allergy Verified 10/18/20 12:16 Pork/Porcine Containing Allergy Verified 10/18/20 12:16 Products Home Medications Medication Instructions Recorded Confirmed Type hydroxychloroquine 200 mg tablet 200 mg PO BID 02/09/19 10/17/20 History (Plaquenil) omeprazole 20 mg capsule,delayed 20 mg PO QAM PRN 02/09/19 10/17/20 History release CPAP Supplies 1 ea .ROUTE DAILY #1 ea 08/31/20 09/06/20 Rx montelukast 10 mg tablet 10 mg PO QAM 10/17/20 10/17/20 History (Singulair) multivitamin (Daily-Andrea) 1 tab PO QAM 10/17/20 10/17/20 History naproxen 500 mg tablet (Naprosyn) 500 mg PO BID 10/17/20 10/17/20 History Pain History Pain Intensity Pain scale - at its best (0-10): 2 Pain scale - at its worst (0-10): 10 Patient History Medical History (Updated 10/19/20 @ 09:09 by Haroon Thacker PA-C) Lumbar disc herniation SNHL (sensorineural hearing loss) Tinnitus Surgical History Papilloma of breast Benign intraductal papilloma L breast S/P cholecystectomy S/P nasal surgery S/P tonsillectomy and adenoidectomy Family History Mother Breast cancer Sister Breast cancer Grandmother Colon cancer Denies family history of Ovarian cancer Prostate cancer Myocardial infarction Social History Smoking Status: Never smoker Second Hand Exposure: No; Hx Alcohol Use: No Hx Substance Use: No Preferred Language: Tuvaluan Visual Impairment: No Limitations Hearing Ability: Normal Loss Prevention Coordinator Required: No Beliefs That Will Affect Care: None marital status: Single Current Living Situation: Alone current occupational status: employed 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 Patient morbidly obese and physically deconditioned. Speech and thought process appropriate. Mood and affect appropriate. Cognition intact. Head: Normocephalic and atraumatic. ENT: No evidence of nasal or oral mucosal lesions. Mucous membranes are moist. Eyes: Pupils equal round reactive to light. Neck: Supple without adenopathy and full range of motion. Chest: Nontender to palpation of the costosternal junction. Abdomen: Soft and nondistended. No organomegaly. Bowel sounds active. Back/spine: Loss of lordosis. Generally tender over the lumbosacral region. No focal midline or facet joint tenderness. Nontender over the SI joint. Moderately tender over the left gluteal region. Lower extremities: SLR positive on the left aggravated dorsiflexion reproducing S1 radicular pain. Strength testing was 4/5 the left with dorsiflexion, plantarflexion, EHL testing and hip flexion/extension with some guarding. Sensation was intact without focal deficit. No evidence of edema. Right lower extremity strength 5/5 and equal. SLR negative on the right. Neurologic: Cranial nerves grossly intact. Ambulatory function not witnessed. Results (Pain Clinic) Diagnostic Review MRI Findings: [facility], [id number] Magnetic Resonance Report Patient: CARO ESPINOSAAdmit Date: 10/17/20MR#: [id number]: [id number] [facility]Acct ID:[id number]: Date: 1960[facility] Zip: [place], [place] [address]Cul: 60Location: EDSex: FRoom/Bed:Att Phy:Diagnosis: LEFT LEG PAINPri Phy: Ingrid Michaels MDServmaryan Date: 10/17/20Fa Phy:Interpreting Phy: Jaquan AmorAdmit Phy: Ordering Phy: Cathy Haney PA-C cc: ~ MR lumbar spine wo con CLINICAL HISTORY: 60 years-old Female with left leg pain/weakness/numbness. Acute low back pain with radiation into the left lower leg COMPARISON: None. TECHNIQUE: Multiplanar, multi sequence MRI of the lumbar spine was performed without intravenous contrast. FINDINGS: Otolaryngology Nurse localizer images demonstrate no gross extraspinal abnormality. Subcutaneous edema of the lower back is likely physiologic. No acute fracture, subluxation, endplate erosion or significant bone marrow edema. Conus medullaris terminates at T12-L1. Signal within the imaged thoracic spinal cord and cauda equina is within normal limits. 1.4 cm L3 vertebral body hemangioma. Type II endplate degenerative changes at L4-L5. T12-L1: Mild facet arthrosis with ligamentum flavum thickening. No central canal or neural foraminal stenosis. L1-L2: Mild facet arthrosis with ligamentum flavum thickening. No central canal or neural foraminal stenosis. L2-L3: And mild to moderate facet arthrosis with ligamentum flavum thickening. Small posterior annular disc bulge flattens the ventral thecal sac. Mild spondylitic spurring. There is mild right neural foraminal stenosis. Mild central canal stenosis. The left neuroforamen is patent. L3-L4: Small posterior annular disc bulge favoring the left lateral recess and left neural foramen with mild spondylitic spurring. Ligamentum flavum thickening with moderate facet arthrosis. AP dimension of the thecal sac measures 7 mm. There is mild to moderate central canal stenosis with at least moderate narrowin g of the left lateral recess. There is mild to moderate bilateral neural foraminal narrowing. L4-L5: Mild intervertebral disc space narrowing with spondylitic spurring, posterior annular disc bulge with disc osteophyte complex. Ligamentum flavum thickening with moderate facet arthrosis. AP dimension of the thecal sac measures 6 mm. There is moderate to severe central canal stenosis with severe n arrowing of the lateral recesses. Moderate to severe right with moderate left neural foraminal narrowing. L5-S1: Mild spondylitic spurring with circumferential annular disc bulge and posterior annular fissure. Spondylitic spurring with ligamentum flavum thickening and at least moderate facet arthrosis. There is a left lateral recess disc extrusion measuring 0.7 x 1.3 cm extending 9 mm inferior to the superior endplate of S1. This abuts and posteriorly displaces the left S1 nerve root. There is severe narrowing of the left lateral recess. No significant central canal narrowing. Severe right with moderate left neural foraminal stenosis. IMPRESSION: 1. At L5-S1 there is a left lateral recess disc extrusion which abuts and posteriorly displaces the left S1 nerve root resulting in severe left lateral recess narrowing with severe right and moderate left neural foraminal stenosis. 2. Moderate to severe central canal stenosis at L4-L5. 3. Additional discogenic degenerative changes with facet arthrosis as detailed above. ACT 112: Negative or not required by law. The above report was generated using voice recognition software. It may contain grammatical, syntax or spelling errors. Electronically signed by: Jaquan Amor M.D. 10/17/2020 10:36 AM Dictated: 10/17/207Transcribed: 10/17/201026
--- NOTE | 2020-10-19 09:46 | Anesthesiology Consultation ---
Date of Service October 19, 2020 Assessment & Plan (1) Encounter for pre-operative examination: Chart Review Chart Review: Acceptable Risk for Surgery History Surgery Operation Date: 10/19/20 12:00 Proposed Procedures p Lumbar Transforaminal Injection - Dimitry Bartholomew MD, PP Height/Weight Height: 5 ft 5 in Weight: 125 kg Allergies Allergy/AdvReac Type Severity Reaction Status Date / Time animal dander Allergy Intermediate itchy Unverified 10/17/20 08:32 watery eyes, sneezing grass pollen Allergy Intermediate itchy Unverified 10/17/20 08:32 watery eyes, sneezing methylchloroisothiazolinone Allergy Intermediate itchy Unverified 10/17/20 08:35 watery eyes, sneezing mite-Dermatophagoides Allergy Intermediate itchy Unverified 10/17/20 08:32 farinae, thea watery eyes, sneezing mold Allergy Intermediate itchy Unverified 10/17/20 08:32 watery eyes, sneezing tree and shrub pollen Allergy Intermediate itchy Unverified 10/17/20 08:32 watery eyes, sneezing Latex, Natural Rubber Allergy Unknown Rash Verified 10/17/20 21:31 thimerosal Allergy Unknown allergy Verified 10/17/20 21:31 tested this came up barley Allergy Verified 10/18/20 12:16 celery Allergy Verified 10/18/20 12:16 fluticasone [From Flonase] Allergy itching Verified 10/17/20 08:27 green pepper Allergy Verified 10/18/20 12:16 peanut Allergy Verified 10/18/20 12:16 peanut oil Allergy Verified 10/18/20 12:16 pork derived (porcine) Allergy Verified 10/18/20 12:16 Pork/Porcine Containing Allergy Verified 10/18/20 12:16 Products Medications Home Medications Medication Instructions Recorded Confirmed Last Taken hydroxychloroquine 200 mg tablet 200 mg PO BID 02/09/19 10/17/20 10/16/20 (Plaquenil) omeprazole 20 mg capsule,delayed 20 mg PO QAM PRN 02/09/19 10/17/20 10/10/20 release CPAP Supplies 1 ea .ROUTE DAILY #1 ea 08/31/20 09/06/20 Unknown montelukast 10 mg tablet 10 mg PO QAM 10/17/20 10/17/2010/16/21 (Singulair) multivitamin (Daily-Andrea) 1 tab PO QAM 10/17/20 10/17/20 10/16/20 naproxen 500 mg tablet (Naprosyn) 500 mg PO BID 10/17/20 10/17/20 10/16/20 Active Medications Generic Name Dose Route Start Last Admin Trade Name Freq PRN Reason Stop Dose Admin Hydrocodone Bitart/Acetaminophen 1 tab 10/18/20 18:13 10/19/20 04:30 Hydrocodone/Acetamophen 5/325mg Tab PO 11/01/20 18:12 1 tab Q4 PRN Administration Moderate Pain Gabapentin 200 mg 10/18/20 19:00 10/19/20 08:11 Gabapentin 100 Mg Cap PO 11/17/20 18:59 200 mg BID RENATE Administration Hydromorphone HCl 0.5 mg 10/17/20 17:05 10/19/20 05:36 Hydromorphone Inj 0.5 Mg/0.5 Ml Syr IV 10/31/20 17:04 0.5 mg Q4H PRN Administration Severe Pain (7-10) Hydroxychloroquine Sulfate 200 mg 10/17/20 21:00 10/19/20 08:11 Hydroxychloroquine Sulfate 200 Mg Tab PO 11/16/20 20:59 200 mg BID RENATE Administration Lidocaine 1 patch 10/17/20 22:00 10/18/20 20:30 Lidocaine 5% 1 Patch TD 11/16/20 21:59 1 patch HS RENATE Administration Miscellaneous 1 ea 10/18/20 09:00 10/19/20 04:30 Remove Lidoderm Patch N/A 11/17/20 08:59 1 ea QAM RENATE Administration Montelukast Sodium 10 mg 10/18/20 21:00 10/18/20 20:30 Montelukast Sodium 10 Mg Tablet PO 11/17/20 08:59 10 mg HS RENATE Administration Prednisone 50 mg 10/18/20 09:00 10/19/20 08:11 Prednisone 50 Mg Tab PO 11/17/20 08:59 50 mg QAM RENATE Administration Past Medical History Medical History (Updated 10/19/20 @ 09:46 by John Agudelo MD) Lumbar disc herniation Lupus (systemic lupus erythematosus) Obesity Obstructive sleep apnea SNHL (sensorineural hearing loss) Tinnitus Past Family History Family History Mother Breast cancer Sister Breast cancer Grandmother Colon cancer Denies family history of Ovarian cancer Prostate cancer Myocardial infarction Past Surgical History Surgical History Papilloma of breast Benign intraductal papilloma L breast S/P cholecystectomy S/P nasal surgery S/P tonsillectomy and adenoidectomy Social History Smoking Status: Never smoker Do You Dip or Chew Tobacco: No Hx Alcohol Use: No Hx Substance Use: No Physical Exam Vital Signs Last Vital Signs Temp 36.4 C L 10/19/20 07:35 Pulse 63 10/19/20 07:35 Resp 16 10/19/20 07:35 BP 144/69 H 10/19/20 07:35 Pulse Ox 92 10/19/20 07:35 Testing Laboratory Results 10/18/20 06:37 10/18/20 06:37 Urine Color Yellow 10/17/20 22:25 Urine Appearance Clear (Clear) 10/17/20 22:25 Urine pH 6.0 (4.5-7.5) 10/17/20 22:25 Ur Specific [place] 1.019 (1.000-1.030) 10/17/20 22:25 Urine Protein Negative (Negative) 10/17/20 22:25 Urine Glucose (UA) Negative (Negative) 10/17/20 22:25 Urine Ketones 2+ (Negative) H 10/17/20 22:25 Urine Nitrite Negative (Negative) 10/17/20 22:25 Ur Leukocyte Esterase Negative (Negative) 10/17/20 22:25 Urine WBC (Auto) 1-5 /hpf (0-5) 10/17/20 22:25 Urine RBC (Auto) 10-30 /hpf (0-4) H 10/17/20 22:25 U Hyaline Cast (Auto) 5-10 /lpf (0-5) H 10/17/20 22:25 U Epithel Cells (Auto) >30 /lpf (0-5) H 10/17/20 22:25 Urine Bacteria (Auto) Negative (Negative) 10/17/20 22:25
[2020-10-19] MEDS ORDERED: fentaNYL citrate 100 MCG/2 ML VIAL ONE (10:52)
[2020-10-19] MEDS ORDERED: LIDOCAINE 2% 2 ML VIAL/AMP(20MG/ML) INFIL ONE (10:52)
[2020-10-19] MEDS ORDERED: PROPOFOL IV EMULSION 10 MG/ML 20 ML VIAL IV ONE (10:52)
[2020-10-19] MEDS ORDERED: MIDAZOLAM HCL 1 MG/ML 2ML VIAL ONE (10:52)
[2020-10-19] MEDS ORDERED: ONDANSETRON INJ 2 MG/ML 2 ML VIAL ONE (10:52)
--- NOTE | 2020-10-19 11:34 | History & Physical Bridge Note ---
Date of Service October 19, 2020 History & Physical Bridge Note 60-year-old female with a history of acute disc herniation with left-sided radicular symptoms. Patient is scheduled to undergo left L5/S1 and possibly S1 transforaminal procedure injection this morning. The nature of the procedure, potential risks and benefits have discussed with the patient. Her questions were answered and she gave informed consent to proceed. No changes noted from her previous history and physical examination this morning. Laboratory studies have been reviewed and no contraindications noted to proceeding with the proposed procedure.
[2020-10-19] MEDS ORDERED: ePHEDrine sulfate 50 MG/ML AMP IV PRN (11:59)
[2020-10-19] MEDS ORDERED: ATROPINE SULFATE 0.1 MG/ML 10ML SYR IV PRN (11:59)
[2020-10-19] MEDS ORDERED: IOPAMIDOL INJ 61% 15 ML VIAL INJ ONE (12:25)
[2020-10-19] MEDS ORDERED: LIDOCAINE 2% LOCAL 50 ML VIAL INSTIL ONE (12:27)
[2020-10-19] MEDS ORDERED: methylPREDNISolone 125 MG/2 ML VIAL IM ONE (12:30)
--- NOTE | 2020-10-19 12:50 | Anesthesiology Progress Note ---
Date of Service October 19, 2020 Anesthesia Post Procedure Vital Signs Vital Signs: Temp Pulse Pulse Resp BP Pulse Ox 10/19/20 12:45 82 14 161/73 H 97 10/19/20 12:35 36.7 C 72 16 155/73 H 96 10/19/20 11:10 36.8 C 18 L 71 18 141/63 H 94 10/19/20 07:35 36.4 C L 63 16 144/69 H 92 10/18/20 22:16 36.8 C 84 16 105/54 L 93 10/18/20 14:40 36.9 C 81 18 139/72 92 Pain Intensity Back: Pain Intensity: 0 Transfer of Care Handoff Completed per policy Notes Mental Status: alert / awake / arousable Patient Amnestic to Procedure: Yes Nausea / Vomiting: adequately controlled Pain: adequately controlled Airway Patency, RR, SpO2: stable & adequate BP & HR: stable & adequate Hydration State: stable & adequate Anesthetic Complications: no major complications apparent
--- NOTE | 2020-10-19 15:12 | Hospitalist Progress Note ---
Date of Service October 19, 2020 Assessment & Plan (1) Lumbar radiculopathy, acute: Plan: Presents with acute left L5-S1 disc herniation with left S1 radiculopathy, severe pain from left posterior thigh to left foot, sensory deficit left leg and mild weakness in S1 distribution. MRI Lumbar spine with L5-S1 there is a left lateral recess disc extrusion which abuts and posteriorly displaces the left S1 nerve root resulting in severe left lateral recess narrowing with severe right and moderate left neural foraminal stenosis. Moderate to severe central canal stenosis at L4-L5. Additional discogenic degenerative changes with facet arthrosis Pain modestly improved since receiving IV Decadron 10mg in ER and prednisone 50mg daily IV dilaudid helps for a short period but is also making her chest and jaw feel tight when she receives it. Appreciate Ortho SPine consultation-needs medical, conservative therapy first to include steroids, PT, Pain Management consult Appreciate Pain Management consult-received L5-S1 JESSIKA on 10/19 -increase gabapentin to 300mg po tid and titrate upwards as tolerated to effect -continue prednisone 50mg po daily -dcd Naprosyn for JESSIKA and also increased risk for PUD with steroids and NSAIDs -continue lidocaine patch, heat -PT/OT consults -continue hydrocodone prn pain and avoid dilaudid given adverse side effect although I do not believe this is an allergic reaction -asked CM to get Rx for walker for home use (2) Spinal stenosis: Plan: As above (3) Lupus (systemic lupus erythematosus): Plan: Continue Plaquenil 200 PO BID Follows with Rheum at [place] (4) Hypercholesterolemia: Plan: Not on home therapy (5) Acid reflux: Plan: Continue PPI (6) Obstructive sleep apnea: Plan: AHI in 2019 12.5- AutoPAP 4-17 - Patient home machine has been recalled [employer]- she has not used for 3 weeks - In house machine will be ordered, reviewed with patient would like her to wear at night especially with addition of sedatives/narcotics (7) DVT prophylaxis: Plan: dc Lovenox for JESSIKA, SCDs Dispo-continued stay, but hopeful for dc to home tomorrow if pain better controlled Admission and Anticipated Discharge Date Admission Date: October 17, 2020 Subjective Pt had JESSIKA today in OR. Feels still with pain and was hoping would have instant relief. She has some improvement in left foot strength and was able ot ambulate with a walker to the bathroom whichi s an improvement. Not yet ready to go home due to uncontrolled pain. No excessive drowsiness, in fact, was not able to sleep much last night. Is eating and drinking, no CP or SOB, no abd pain. N oN/V. Review of Systems Review of Systems: All systems reviewed & are unremarkable except as noted in HPI & below Physical Exam Constitutional: WD/WN, vitals as above + obese Eyes: + anicteric sclerae Neck: trachea midline, no thyromegaly Respiratory: normal respiratory effort, lungs clear to auscultation Cardiovascular: RRR, no murmur, no edema Chest (Breasts): Chest: normal inspection of chest Gastrointestinal (Abdomen): normal bowel sounds, soft, nontender, no hepatosplenomegaly Musculoskeletal: Extremities: extremities normal to inspection; no cyanosis and no clubbing Skin: no rashes, warm and dry Neurologic: + focal motor deficit (5/5 strength left ankle dorsiflexion,left great toe dorsiflexion-improved) and awake; not confused Motor/Sensory: + sensory deficit (decreased to light touch left leg) Psychiatric: A+Ox3, euthymic affect Lymphatic: no lymphedema Results & Data Results & Data ([facility]) Vital Signs (Past 12 Hours) Vital Signs Temp Pulse Pulse Resp BP Pulse Ox 10/19/20 14:46 36.6 C 76 16 145/76 H 93 10/19/20 13:43 36.5 C 80 18 167/68 H 96 10/19/20 13:15 36.6 C 78 16 153/76 H 93 10/19/20 12:55 36.6 C 73 14 144/67 H 95 10/19/20 12:45 82 14 161/73 H 97 10/19/20 12:35 36.7 C 72 16 155/73 H 96 10/19/20 11:10 36.8 C 18 L 71 18 141/63 H 94 10/19/20 07:35 36.4 C L 63 16 144/69 H 92 PG Care Time/CCT Total # of Minutes Spent Total Time Spent with Patient: Total time spent is greater than 50% in coordination of care (as documented) at patient's floor/unit and/or counseling patient: Coding Level of Care Code 68835 Subseq Hosp Care Lvl 2 Diagnoses Lumbar radiculopathy, acute M54.16 Spinal stenosis M48.00 Lupus (systemic lupus erythematosus) M32.9 Hypercholesterolemia E78.00 Acid reflux K21.9 Obstructive sleep apnea G47.33 DVT prophylaxis Z29.9
--- NOTE | 2020-10-19 15:39 | Procedure Note ---
Date of Service October 19, 2020 Home Medications Medication Instructions Recorded Confirmed Type hydroxychloroquine 200 mg tablet 200 mg PO BID 02/09/19 10/17/20 History (Plaquenil) omeprazole 20 mg capsule,delayed 20 mg PO QAM PRN 02/09/19 10/17/20 History release CPAP Supplies 1 ea .ROUTE DAILY #1 ea 08/31/20 09/06/20 Rx montelukast 10 mg tablet 10 mg PO QAM 10/17/20 10/17/20 History (Singulair) multivitamin (Daily-Andrea) 1 tab PO QAM 10/17/20 10/17/20 History naproxen 500 mg tablet (Naprosyn) 500 mg PO BID 10/17/20 10/17/20 History Allergies Allergy/AdvReac Type Severity Reaction Status Date / Time animal dander Allergy Intermediate itchy Unverified 10/17/20 08:32 watery eyes, sneezing grass pollen Allergy Intermediate itchy Unverified 10/17/20 08:32 watery eyes, sneezing methylchloroisothiazolinone Allergy Intermediate itchy Unverified 10/17/20 08:35 watery eyes, sneezing mite-Dermatophagoides Allergy Intermediate itchy Unverified 10/17/20 08:32 farinae, thea watery eyes, sneezing mold Allergy Intermediate itchy Unverified 10/17/20 08:32 watery eyes, sneezing tree and shrub pollen Allergy Intermediate itchy Unverified 10/17/20 08:32 watery eyes, sneezing fluticasone [From Flonase] Allergy Mild itching Verified 10/19/20 15:35 barley Allergy Unknown Unknown Verified 10/19/20 15:35 celery Allergy Unknown Unknown Verified 10/19/20 15:35 green pepper Allergy Unknown Unknown Verified 10/19/20 15:35 Latex, Natural Rubber Allergy Unknown Rash Verified 10/17/20 21:31 peanut Allergy Unknown Unknown Verified 10/19/20 15:35 peanut oil Allergy Unknown Unknown Verified 10/19/20 15:35 pork derived (porcine) Allergy Unknown Unknown Verified 10/19/20 15:35 Pork/Porcine Containing Allergy Unknown Unknown Verified 10/19/20 15:35 Products thimerosal Allergy Unknown allergy Verified 10/17/20 21:31 tested this came up Past Med/Surg History Medical History (Updated 10/19/20 @ 09:46 by John Agudelo MD) Lumbar disc herniation Lupus (systemic lupus erythematosus) Obesity Obstructive sleep apnea SNHL (sensorineural hearing loss) Tinnitus Surgical History Papilloma of breast Benign intraductal papilloma L breast S/P cholecystectomy S/P nasal surgery S/P tonsillectomy and adenoidectomy Family History Mother Breast cancer Sister Breast cancer Grandmother Colon cancer Denies family history of Ovarian cancer Prostate cancer Myocardial infarction Social History Smoking Status: Never smoker Second Hand Exposure: No; Do You Dip or Chew Tobacco: No; Tobacco Cessation Education Requested by Patient: No Hx Alcohol Use: No Hx Substance Use: No Preferred Language: Omani Visual Impairment: No Limitations Hearing Ability: Normal Kiss Setter Hand Required: No Beliefs That Will Affect Care: None marital status: Single Current Living Situation: Alone current occupational status: employed 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 Bartholomew ASA Class ASA3 Consent Discussed Potential risks including infection, bleeding, nerve injury, persistent pain at the injection site, reaction to any one of the medication used for the procedure, possibly of postdural puncture headache as well as persistent symptoms after the procedure were discussed with the patient. Alternatives to this procedure were also discussed with the patient. Patient's questions were answered. Patient gave informed consent. Description of Procedure Free Text Your Procedure Description: LUMBAR TRANSFORAMINAL EPIDURAL STEROID INJECTION Diagnosis: Lumbar radiculitis Level injected: Left L5/S1 Surgeon: Dr. Bartholomew Prior to starting, the Patients diagnosis and the procedure were reviewed with the patient in detail. Possible risks, complications and alternative therapies were also reviewed. Patients questions were answered. Informed consent was obtained. Allergies and medication list was reviewed. The patient was brought to the fluoroscopy room and placed in prone position on the table. Immediately prior to starting the procedure, a ``time out was conducted with the staff and the patient where the patient was identified, proposed procedure was verified, consent was reviewed and the proper site for the planned procedure was identified. Fluoroscopy was utilized in performing the procedure to assist the placement of the needle, to evaluate the final position of the needle prior to injection and to avoid intravascular injection. Monitors used included intermittent blood pressure with automated device, continuous pulse oximetry and level of consciousness. Patient was not given any intravenous sedation and constant verbal contact was maintained throughout the procedure. Biplanar fluoroscopy was used to assist in placement of the needle as well as to evaluate final needle position prior to the injection. On examination, no signs of skin breakdown or infection were noted at the injection site. Lumbar-sacral area was prepped with DuraPrep followed by B etadine solution. Sterile drapes were applied. The appropriate interspace and disk was identified in a true AP view. The fluoroscope was then rotated to obtain a decubitus view in such a manner so that the superior articular process of the inferior vertebra was bisecting the pars inter-articularis of the vertebra above in two. A 22 Gauge 3.5 inch curved (15 degrees) spinal needle was inserted through the skin and subcutaneous tissues, after infiltration of 2 cc of 2% Xylocaine MPF, and advanced in a co-axial technique. Needle tip was first placed on the infero-lateral margin of the pars inter-articularis. Once the bony margin was contacted, the C-arm was rotated to obtain a lateral view. The needle was slowly ``walked off the bone and advanced toward the anterior and superior aspect of the foramen. Patient did not experience any pain or paresthesia. Six inch micro bore tubing was attached to the needle and aspiration did not demonstrate CSF or blood. AP view was checked to ensure the needle tip was in close proximity to the nerve root in the proximal neural foramen lateral to the inferior articular process and in the 6 oclock position. 1 cc of Isovue 300 contrast was injected via the needle under live fluoroscopy. Spread of the contrast was noted in the epidural space and along the nerve root. Neither subdural or subarachnoid spread nor intravascular uptake was n oted on plain fluoroscopy. Approximately 10 second digital subtraction angiogram at 8 f/s rate was done in AP view with additional contrast. No vascular uptake was noted. Next 80 mg of Kenalog was injected followed by 2 cc of 2% Xylocaine MPF to flush the needle. The patient did not experience pain during the injection. Adequate hemostasis was noted. A sterile Band-Aid was applied to the injection site. Patient was monitored for 30 minutes and discharged with an accompanying adult. Discharge instructions were reviewed with the patient/caregiver. Any specific questions were answered. Patient/caregiver voiced understanding of the instructions. Follow-up appointment has been scheduled. Complications none Procedure Tolerated well Discharge Note D/C Note Report was called to the floor RN. Patient's vitals are within normal limits. Patient was transferred via litter by patient transport back to the floor. Assessment & Plan Admission and Anticipated Discharge Date Admission Date: October 19, 2020
[2020-10-19] MEDS: GABAPENTIN 300 MG CAP PO SCH ×2 (16:40→20:55)
[2020-10-19] MEDS: LIDOCAINE 5% 1 PATCH TD SCH (20:55)
[2020-10-19] MEDS: MONTELUKAST SODIUM 10 MG TABLET PO SCH (20:55)
[2020-10-20] MEDS: HYDROCODONE/ACETAMOPHEN 5/325MG TAB PO PRN ×3 (03:22→22:17)
[2020-10-20] MEDS: GABAPENTIN 300 MG CAP PO SCH ×3 (08:20→20:32)
[2020-10-20] MEDS: HYDROXYCHLOROQUINE SULFATE 200 MG TAB PO SCH ×2 (08:20→20:32)
[2020-10-20] MEDS: predniSONE 50 MG TAB PO SCH (08:21)
--- NOTE | 2020-10-20 08:42 | Pain Management Progress Note ---
Date of Service October 20, 2020 Assessment & Plan (1) Lumbar disc herniation: (2) Lumbar radiculopathy, acute: Plan: 1. Currently pleased with relief status post lumbar JESSIKA. Expectations were discussed at length with the patient and she did verbalize understanding. 2. Patient will continue the current medications as prescribed per hospitalist service 3. Will follow up in pain clinic in 2 weeks for reassessment or before as needed. Pain service will sign off on patient at this time. Please contact pain service for reevaluation as needed. Admission and Anticipated Discharge Date Admission Date: October 19, 2020 Subjective Mrs. Stearns is a 60-year-old white female who was admitted due to intractable left lower extremity radicular pain. Dr. Bartholomew performed a left L5-S1 transforaminal JESSIKA yesterday. Patient is reporting reduction in the severity of her pain in the left lower extremity since the time of the procedure. She was reporting improved ability to ambulate with a walker assistance this morning with less pain and discomfort. She is indicating her pain is a 3-6/10. She is no longer experiencing the sharp burning c haracteristic pain. She describes an aching characteristic discomfort at this time. She is also experiencing some mild aching across the lumbar region which was not present previously per her report. She reported no side effects from the JESSIKA. She finds Bonaparte to be effective and is planning to take a dose soon anticipation of physical therapy. Patient has no further constitutional complaints at this time. Plan of care discussed with Dr. Ksenia Marquez. Pain Assessment Pain Assessment Full Body Front + Back: 1. Lumbosacral spine 2. Left lower extremity-predominant S1 distribution Pain scale - at its best (0-10): 3 Pain scale - at its worst (0-10): 6 Physical Exam Physical Exam: General: Patient lying quietly upon entering the room in no acute distress. Speech and thought process appropriate. Mood and affect appropriate. Cognition intact. Patient obese and physically deconditioned. Back/spine: Patient is able to logroll towards her left side for visual inspection of the lumbar spine. Band-Aid was intact and was removed. No evidence of edema, erythema or skin breakdown at site of JESSIKA. Minimal generalized tenderness of the lumbosacral region which is nonfocal. Lower extremity: Strength testing 5/5 with dorsi and plantar flexion as well as EHL testing bilaterally. Sensation was intact without deficit. SLR was negative bilaterally. Neurologic: Cranial nerves grossly intact. Ambulation not witnessed.
[2020-10-20] MEDS: MONTELUKAST SODIUM 10 MG TABLET PO SCH (20:32)
[2020-10-20] MEDS: LIDOCAINE 5% 1 PATCH TD SCH (20:33)
--- NOTE | 2020-10-20 21:36 | Hospitalist Progress Note ---
Date of Service October 20, 2020 Assessment & Plan (1) Lumbar radiculopathy, acute: Plan: Presents with acute left L5-S1 disc herniation with left S1 radiculopathy, severe pain from left posterior thigh to left foot, sensory deficit left leg and mild weakness in S1 distribution. MRI Lumbar spine with L5-S1 there is a left lateral recess disc extrusion which abuts and posteriorly displaces the left S1 nerve root resulting in severe left lateral recess narrowing with severe right and moderate left neural foraminal stenosis. Moderate to severe central canal stenosis at L4-L5. Additional discogenic degenerative changes with facet arthrosis Pain modestly improved since receiving IV Decadron 10mg in ER and prednisone 50mg daily IV dilaudid helps for a short period but is also making her chest and jaw feel tight when she receives it. Started gabapentin and this is helping as well. Hydrocodone does make her drowsy but helps with pain Appreciate Ortho SPine consultation-needs medical, conservative therapy first to include steroids, PT, Pain Management consult Appreciate Pain Management consult-received L5-S1 JESSIKA on 10/19 -Continue gabapentin 300mg po tid and titrate upwards as tolerated to effect if needed -continue prednisone 50mg po daily x7-day course -dcd Naprosyn for JESSIKA and also increased risk for PUD with steroids and NSAIDs -continue lidocaine patch, heat -PT/OT consults appreciated -continue hydrocodone prn pain and avoid dilaudid given adverse side effect although I do not believe this is an allergic reaction -asked CM to get Rx for walker for home use-this has been delivered to the room Patient feels hopeful that she will be ready for discharge to home on Friday and is requesting home exercise program with physical therapy She should follow-up with pain management after discharge (2) Spinal stenosis: Plan: As above (3) Lupus (systemic lupus erythematosus): Plan: Continue Plaquenil 200 PO BID Follows with Rheum at [place] (4) Hypercholesterolemia: Plan: Not on home therapy (5) Acid reflux: Plan: Continue PPI-make scheduled given that she is on steroids (6) Obstructive sleep apnea: Plan: AHI in 2019 12.5- AutoPAP 4-17 - Patient home machine has been recalled [facility]- she has not used for 3 weeks She cannot tolerate the full facemask here Her PCP is working on getting her a different CPAP machine for at home (7) DVT prophylaxis: Plan: SCDs only given recent steroid injection in the spine Dispo-continued stay, but hopeful for dc to home tomorrow if pain better controlled Admission and Anticipated Discharge Date Admission Date: October 19, 2020 Anticipated date of discharge: 10/21/20 Subjective Patient reports she was doing fairly well last night but after her walk this morning her pain is significantly worse down the back of the left lower extremity. She did ambulate up and down the halls with a walker. She does not quite feel she is ready to go home yet. She continues to lie flat in bed and eats while lying flat as sitting up causes her pain and nausea. The hydrocodone is making her excessively drowsy. She has not yet moved her bowels since admission Review of Systems Review of Systems: All systems reviewed & are unremarkable except as noted in HPI & below Physical Exam Constitutional: WD/WN, vitals as above + obese Eyes: + anicteric sclerae ENMT: external ear and nose normal, oropharynx normal Neck: trachea midline, no thyromegaly Respiratory: normal respiratory effort, lungs clear to auscultation Cardiovascular: RRR, no murmur, no edema Chest (Breasts): Chest: normal inspection of chest Gastrointestinal (Abdomen): normal bowel sounds, soft, nontender, no hepatosplenomegaly Musculoskeletal: Extremities: extremities normal to inspection; no cyanosis and no clubbing Skin: no rashes, warm and dry Neurologic: awake; not confused Psychiatric: A+Ox3, euthymic affect Lymphatic: no lymphedema Results & Data Results & Data ([facility]) Vital Signs (Past 12 Hours) Vital Signs Temp Pulse Pulse Resp BP Pulse Ox 10/20/20 15:11 36.6 C 77 20 131/68 96 10/20/20 12:11 36.6 C 73 77 18 127/72 92 PG Care Time/CCT Total # of Minutes Spent Total Time Spent with Patient: Total time spent is greater than 50% in coordination of care (as documented) at patient's floor/unit and/or counseling patient: Coding Level of Care Code 66326 Subseq Hosp Care Lvl 1 Diagnoses Lumbar radiculopathy, acute M54.16 Spinal stenosis M48.00 Lupus (systemic lupus erythematosus) M32.9 Hypercholesterolemia E78.00 Acid reflux K21.9 Obstructive sleep apnea G47.33 DVT prophylaxis Z29.9
[2020-10-21] MEDS: HYDROmorphone INJ 0.5 MG/0.5 ML SYR IV PRN (08:50)
[2020-10-21] MEDS: GABAPENTIN 300 MG CAP PO SCH ×2 (08:52→14:07)
[2020-10-21] MEDS: HYDROXYCHLOROQUINE SULFATE 200 MG TAB PO SCH (08:52)
[2020-10-21] MEDS: predniSONE 50 MG TAB PO SCH (08:52)
[2020-10-21] MEDS ORDERED: PANTOprazole 40 MG TAB PO SCH (09:00)
--- NOTE | 2020-10-21 14:56 | Discharge Summary ---
Date of Service October 21, 2020 Admission HPI Per Admitting Provider 60 YOF with past medical history of: Lupus, HLD, CHINO, DMII, Obesity. Patient comes to the emergency room today via friend's vehicle on crutches. Her chief complaint is left back and leg pain. The pain started on Friday following her working in her yard. She states the pain is sharp and constant and travels from her left hip down the lateral surface of her leg into her ankle. She was treated in the [facility] with Dilaudid, Toradol, and Decadron. She doesn't feel that any of this helped, but was sleeping upon entering the room. The patient states that her pain is controllable when she is lying down as this "makes her not care about having the pain, but doesn't go away." The pain is worse when she is standing or sitting and had crutches left over at home so started using these to help her walk. She is on Naprosyn at home and did not feel this provided any relief. She had a MRI of her lumbar spine done in the [facility], that showed L5-S1 left lateral recess disc extrusion that abuts and displaces the left S1 nerve root posteriorly and severe right and moderate left neural foraminal stenosis and moderate to severe central canal stenosis at l4-l5 with other degenerative changes. [facility] had ortho-spine come evaluate the patient at the bedside reportedly not surgical in nature. Patient unable to get up and move around well enough for discharge secondary to pain. Patient will be observed in house for continuing oral steroids, pain control, physical therapy evaluation. Principal Diagnosis Lumbar disc herniation Lumbar radiculopathy Discharge Exam Constitutional WD/WN, vitals as above Respiratory normal respiratory effort, lungs clear to auscultation Cardiovascular RRR, no murmur, no edema Musculoskeletal Spine: + paraspinal tenderness (low lumbar left sided) Left L5/S1 distribution numbness Psychiatric A+Ox3, euthymic affect Discharge Data Allergies Allergy/AdvReac Type Severity Reaction Status Date / Time animal dander Allergy Intermediate itchy Unverified 10/17/20 08:32 watery eyes, sneezing grass pollen Allergy Intermediate itchy Unverified 10/17/20 08:32 watery eyes, sneezing methylchloroisothiazolinone Allergy Intermediate itchy Unverified 10/17/20 08:35 watery eyes, sneezing mite-Dermatophagoides Allergy Intermediate itchy Unverified 10/17/20 08:32 farinae, thea watery eyes, sneezing mold Allergy Intermediate itchy Unverified 10/17/20 08:32 watery eyes, sneezing tree and shrub pollen Allergy Intermediate itchy Unverified 10/17/20 08:32 watery eyes, sneezing fluticasone [From Flonase] Allergy Mild itching Verified 10/19/20 15:35 barley Allergy Unknown Unknown Verified 10/19/20 15:35 celery Allergy Unknown Unknown Verified 10/19/20 15:35 green pepper Allergy Unknown Unknown Verified 10/19/20 15:35 Latex, Natural Rubber Allergy Unknown Rash Verified 10/17/20 21:31 peanut Allergy Unknown Unknown Verified 10/19/20 15:35 peanut oil Allergy Unknown Unknown Verified 10/19/20 15:35 pork derived (porcine) Allergy Unknown Unknown Verified 10/19/20 15:35 Pork/Porcine Containing Allergy Unknown Unknown Verified 10/19/20 15:35 Products thimerosal Allergy Unknown allergy Verified 10/17/20 21:31 tested this came up Consultations 10/17/20 15:34 ED Decision to Admit Stat 10/18/20 09:16 Consult Pain Management Routine Procedures Performed Operation Date: 10/19/20 12:00 Actual Procedures p Left L5-S1 Lumbar Transforaminal Injection(Left) - Dimitry Bartholomew MD, FIPP Ordered Studies 10/17/20 07:51 MR lumbar spine wo con Stat IMPRESSION: 1. At L5-S1 there is a left lateral recess disc extrusion which abuts and posteriorly displaces the left S1 nerve root resulting in severe left lateral recess narrowing with severe right and moderate left neural foraminal stenosis. 2. Moderate to severe central canal stenosis at L4-L5. 3. Additional discogenic degenerative changes with facet arthrosis as detailed above. 10/19/20 11:00 FL fluoro for pain procedure Urgent Hospital Course (1) Lumbar radiculopathy, acute: Clraita Stearns is a 60 year old female admitted at [facility] October 17-2020 due to back pain. She was diagnosed with lumbar disc herniation with left sided radiculopathy causing numbness down left dermatomal L5/S1 distribution. Reviewed by ortho spine and pain management to discuss best treatment options. She underwent Left L5/S1 Transforaminal epidural steroid injection by Dr Bartholomew. The local anesthetic part of the injection gave her temporary complete relief of her symptoms which returned milder the following day. This with prednisone, gabapentin, Hatfield and lidocaine patches helped her enough to manage at home and are now medically stable for discharge. She will continue on a prednisone taper continue on prednisone (steroid) taper and gabapentin regularly. Hatfield is for breakthrough pain and to be used as needed. Lidocaine patch can be purchased over the counter. She was advised to hold Naproxen while on the prednisone taper due to increased risk of gastritis/esophagitis. Advised to use her omeprazole regularly while on prednisone taper for gastric prophylaxis. She should follow up with pain management and ortho spine as below. (2) Spinal stenosis: (3) Lupus (systemic lupus erythematosus): (4) Hypercholesterolemia: (5) Acid reflux: (6) Obstructive sleep apnea: (7) DVT prophylaxis: Total Time Total Time Spent Total Time Spent (In Minutes): 45 Discharge Plan Discharge Items Patient Disposition: Home - Self-Care Reason For Visit: PAIN Discharge Diagnosis: Lumbar disc herniation Lumbar radiculopathy Activity: Resume your previous activity Non-emergency contact: Primary Care Provider Call non-emergency contact if: you have any medication questions and your symptoms worsen Follow-up/Referrals: Dimitry Bartholomew MD, FIPP [Anesthesiologist] - (2 week follow up) Ingrid Michaels MD [Primary Care Provider] - Jmaes Fernandez MD [Physician] - (4 week follow up) Diet: Regular Addtl Attending Provider Instructions: You were admitted at [facility] October 17-2020 due to back pain. You were diagnosed with lumbar disc herniation with radiculopathy. You were seen by ortho spine and pain management to discuss best treatment option. You underwent Left L5/S1 Transforaminal epidural steroid injection by Dr Bartholomew. This with steroids, gabapentin, Hatfield and lidocaine patches helped you enough to manage at home and are now medically stable for discharge. Please continue on prednisone (steroid) taper and gabapentin regularly. Hatfield is for breakthrough pain and to be used as needed. Lidocaine patch can be purchased over the counter. Please hold your usual Naproxen while on the prednisone taper as this can increase your risk of gastritis/esophagitis. Please use omeprazole regularly while on prednisone taper for stomach protection. Please follow up with pain management and orthopedics as above for ongoing management of your pain. Kind regards, Dr Yann Nair Pending Studies at Discharge: No Stand-Alone Forms: My [facility], Smoking Cessation Medications and DC Order Prescriptions: New prednisone 10 mg tablet See Rx Instructions .ROUTE .COMPLEX Qty: 30 RF: 0 gabapentin 300 mg capsule 300 mg PO TID Qty: 90 RF: 0 hydrocodone-acetaminophen 5-325 mg tablet 1 tab PO Q4H PRN (Reason: pain) Qty: 20 RF: 0 Continued hydroxychloroquine [Plaquenil] 200 mg tablet 200 mg PO BID RF: 0 CPAP Supplies Misc 1 ea .Route DAILY Qty: 1 RF: 0 multivitamin [Daily-Andrae] Tablet 1 tab PO QAM RF: 0 montelukast [Singulair] 10 mg tablet 10 mg PO QAM RF: 0 Changed omeprazole 20 mg capsule,delayed release(DR/EC) 20 mg PO QAM Qty: 0 RF: 0 Discontinued naproxen [Naprosyn] 500 mg tablet 500 mg PO BID RF: 0 Discharge Orders: Discharge Order (Routine); Ordered 10/21/20 Ordered By: Yann Nair Admission Data Admit Date/Time: 10/19/20 15:05 Attending Provider: Yann Nair Admit Provider: Colby Galvin Primary Care Provider: Ingrid Michaels Other Providers: Feliciano Byrnes ; Dimitry Bartholomew Other Interventions: Discharge Summary Assessment (RN) Last Done: 10/21/20 14:47 Coding Level of Care Code D/C DAY MANAGEMENT >30 MINS Diagnoses Lumbar radiculopathy, acute M54.16 Spinal stenosis M48.00 Lupus (systemic lupus erythematosus) M32.9 Hypercholesterolemia E78.00 Acid reflux K21.9 Obstructive sleep apnea G47.33 DVT prophylaxis Z29.9
== END 2020-10-21 17:39 | disposition home or self-care (01) | DRG 552 ==
LOC: 3N 07:18 → ED 07:18 → SUATTDRO 15:50 → 3N 19:21 → SUATTDRO 10-19 15:05